=== PATIENT | female | born 1955 | race Caucasian/White ===

== ENCOUNTER 2019-11-27 07:48 | Outpatient (CLI) | payer OTHER, SELFPAY ==
--- NOTE | ~2019-11-27 | XR_ITS ---
EXAMINATION: XR chest 2V DATE: 11/27/2019 08:16 INDICATION: Shortness of breath. TECHNIQUE: Frontal and lateral views of the chest were obtained. COMPARISON: Chest 2 views 09/15/2019, chest CT 07/10/2019 FINDINGS: There is stable mild scarring at the lung apices. A calcified right lung nodule and calcifi ed mediastinal lymph nodes are consistent with old granulomatous disease. No pleural effusion or pneu mothorax. The heart size is normal. Surgical clips in the right upper quadrant are likely from cholec ystectomy. IMPRESSION: 1. Stable mild scarring at the lung apices. Reviewed, dictated and finalized at location A.
== END 2019-11-27 07:49 | disposition home or self-care (01) ==
PROVIDERS: PCP Family Medicine; Visit Provider Physician Assistant
DX: R06.02 Shortness of breath (principal); R91.8 Other nonspecific abnormal finding of lung field
CPT/HCPCS: 71046

== ENCOUNTER 2020-03-15 10:51 | Outpatient (CLI) | payer OTHER, SELFPAY ==
--- NOTE | ~2020-03-15 | XR_ITS ---
XR cervical spine 4-5V DATE: 03/15/2020 11:28 INDICATION: Neck pain, right arm pain. TECHNIQUE: AP, open-mouth, lateral, swimmer views COMPARISON: None FINDINGS: There is straightening of the cervical spine. There is approximately 1 mm anterolisthesis at C3-4. There is severe degenerative disc disease with anterior and posterior spurring at C5-6. There is moderately severe degenerative disease at C6-7. There is uncovertebral joint spurring at these 2 levels as well. Degenerative changes noted at the ap ophyseal joints. Incidental finding of bifid spinous process and/or spina bifida occulta at C5, C6 and C7. C1 and C2 are normally aligned and the odontoid process is intact. No fracture or dislocation or lock ed facet. No prevertebral soft tissue swelling. IMPRESSION: Straightening 1 mm anterolisthesis at C3-4 Prominent degenerative disc disease and uncovertebral joint spurring at C5-6 and C6-7 Reviewed, dictated and finalized at location B. IMPRESSION: Straightening 1 mm anterolisthesis at C3-4 Prominent degenerative disc disease and uncovertebral joint spurring at C5-6 an d C6-7
--- NOTE | ~2020-03-15 | XR_ITS ---
EXAMINATION: XR shoulder RT min 2V DATE: 03/15/2020 11:28 INDICATION: Neck pain. Right arm pain. TECHNIQUE: 4 views of right shoulder were obtained. COMPARISON: None. FINDINGS: Bone alignment is normal. No fracture. There is mild osteoarthrosis of glenohumeral joint a nd acromioclavicular joint. IMPRESSION: 1. Mild polyarticular osteoarthritis. Reviewed, dictated and finalized at location A.
== END 2020-03-15 10:52 ==
PROVIDERS: PCP Family Medicine; Visit Provider Family Medicine
DX: M50.322 Other cervical disc degeneration at C5-C6 level (principal); M50.323 Other cervical disc degeneration at C6-C7 level; M19.011 Primary osteoarthritis, right shoulder
CPT/HCPCS: 72050; 73030

== ENCOUNTER 2020-04-15 13:39 | Outpatient (CLI) | payer OTHER, SELFPAY ==
[2020-04-15 14:07] LABS: Basophils Absolute Auto 0.1 K/mm3 (0.0-0.1); Basophils Percent Auto 0.5 % (0.2-1.2); Eosinophils Absolute Auto 0.9 K/mm3 (0-0.3); Eosinophils Percent Auto 9.1 % (0-4.4); Hematocrit 43.5 % (37.0-47.0); Immature Granulocyte Absolute 0.04 K/mm3 (0.00-0.031); Immature Granulocyte Percent A 0.4 % (0-0.5); Lymphocytes Absolute Auto 2.55 K/mm3 (0.9-3.2); Lymphocytes Percent Auto 24.9 % (18.3-44.2); Mean Corpuscular HGB Conc 32.2 g/dl (32-36); Mean Corpuscular Hemoglobin 28.7 pg (26-34); Mean Corpuscular Volume 89.1 fl (80-100); Mean Platelet Volume 11.4 fl (7.4-10.4); Monocytes Absolute Auto 0.9 K/mm3 (0.1-0.6); Monocytes Percent Auto 9.1 % (2.6-8.5); Neutrophils Absolute Auto 5.7 K/mm3 (1.3-6.7); Platelet Count Result 273 k/mm3 (150-375); Red Blood Count 4.88 M/mm3 (4.2-5.4); Red Cell Distribution Width 15.4 % (11.5-14.5); White Blood Count 10.2 K/mm3 (4.5-10.0)
[2020-04-15 14:13] LABS: Add Urine Microscopic? YES; Appearance Urine Clear (Clear); Bacteria Urine Trace /hpf; Bilirubin Urine Negative (Negative); Blood Urine 2+ (Negative); Color Urine Colorless (Yellow); Glucose Urine UA Negative (Negative); Ketones Urine Negative (Negative); Leukocyte Esterase Ur Negative LEU/UL (NEGATIVE); Nitrate Urine Negative (Negative); Protein Urine Negative (Negative); Specific Grav Ur 1.005 (1.001-1.035); Squamous Epithelial Cell Urine Rare /hpf (Few); Urobilinogen Urine Negative mg/dL (<2.0); WBC Urine 0-3 /hpf (0-3)
[2020-04-15 14:18] LABS: Alanine Aminotransferase 39 U/L (4-35); Albumin Level 4.8 g/dL (3.5-5.1); Alkaline Phosphatase 81 U/L (38-126); Amylase 79 U/L (30-110); Anion Gap 8 mmol/L (8-16); Aspartate Amino Transferase 33 U/L (14-36); Bilirubin,Total 0.2 mg/dL (0.2-1.3); Blood Urea Nitrogen 9 mg/dL (7-17); Calcium 9.8 mg/dL (8.4-10.2); Carbon Dioxide 27 mmol/L (22-30); Chloride 106 mmol/L (98-107); Estimated Glomerular Filt Rate > 60; Glucose 73 mg/dL (65-105); Lipase 113 U/L (23-300); Potassium 3.3 mmol/L (3.4-5.0); Sodium 141 mmol/L (137-145)
== END 2020-04-15 13:40 | disposition home or self-care (01) ==
PROVIDERS: PCP Family Medicine; Visit Provider Physician Assistant
DX: R10.9 Unspecified abdominal pain (principal); R19.7 Diarrhea, unspecified
CPT/HCPCS: 36415; 80053; 81001; 82150; 83690; 84443; 85025; 86038; 86039

== ENCOUNTER 2020-05-16 16:15 | Emergency (ER) | payer OTHER, SELFPAY ==
[2020-05-16 16:28] VITALS: BP 143/88; PULSE 86; RESP 17; TEMP 36.7; O2SAT 98
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
[2020-05-16] MEDS: KETOROLAC (*BKC) 60 MG/2 ML VIAL 30 MG IM (16:47)
[2020-05-16 17:01] VITALS: BP 140/78; PULSE 78; RESP 15; O2SAT 99
== END 2020-05-16 17:02 | disposition home or self-care (01) ==
PROVIDERS: Emergency Provider Emergency Medicine; PCP Family Medicine
DX: M54.2 Cervicalgia (principal); J44.9 Chronic obstructive pulmonary disease, unspecified; I10 Essential (primary) hypertension; K21.9 Gastro-esophageal reflux disease without esophagitis; G47.33 Obstructive sleep apnea (adult) (pediatric); E78.49 Other hyperlipidemia; E11.9 Type 2 diabetes mellitus without complications; E55.9 Vitamin D deficiency, unspecified; Z87.891 Personal history of nicotine dependence; Z79.82 Long term (current) use of aspirin; F32.9 Major depressive disorder, single episode, unspecified
CPT/HCPCS: 96372; 99283; J1885

== ENCOUNTER 2020-06-10 07:30 | Outpatient (CLI) | payer OTHER, SELFPAY ==
--- NOTE | 2020-07-12 09:46 | WPDHOMESLEEP ---
Sleep Study - Home Unattended Date of Study: 06/10/20 Ordering Provider: Servando Mohamud APRN Interpreting Physician: Jillian Mcbride MD Home Sleep Study Type: Apnea Link Air Height: 1.57 m Weight: 54.885 kg Body Mass Index: 22.1 Neck Circumference (inches): 15.5 Ovando: 12 Reason for Sleep Study hypersomnia Sleep History Sandra Day is a 65-year-old female with a prior history of sleep apnea which has not been treated. A split night study on February 22, 2018 showed moderate sleep apnea with an AHI of 24.8 with mild to moderate continuous snoring and desaturations. She had a short sleep latency. All sleep stages were represented. Her optimal pressure was 12 cm with improvement in respiratory events. She used a ResMed med air fit after 20 fullface mask. She also required 2 L of oxygen. Her body mass index was normal at that time 24.7. She has a history of loud snoring loud enough that others complain about a, constantly waking at night with heartburn, belching or coughing. She occasionally awakens from sleep feeling short of breath. She occasionally has trouble sleep with a cold. She frequently wakes up gasping for breath at night, occasionally has breathing problems at night reported to her by others constantly sweats excessively at night and occasionally notices her heart pounding or beating irregularly at night. She frequently falls asleep during the day, occasionally involuntarily, never while driving. She does not have loss of muscle tone was strong emotion. She rarely has daytime difficulties due to excessive sleepiness. 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 She does not feel paralyzed on waking or falling asleep. She rarely has vivid dreamlike scenes upon awakening or falling asleep. She occasionally is afraid to go to sleep. She frequently has nightmares. she occasionally remembers her dreams. She frequently has racing thoughts. She rarely has feelings of sadness or depression. She occasionally has anxiety. She frequently has muscular tension. She occasionally notices parts of her body jerking and occasionally kicks at night. She frequently has crawling and aching feelings in her legs and frequently has leg pain during the night. She really has morning jaw pain. She does not grind her teeth during sleep. She frequently has bothered by pain during the day constantly is awakened by pain at night and occasional wakes up feeling stiff in the morning with sore achy muscles. She constantly wakes up with pain in the neck and spine. She has fatigue, nightmares, headaches and poor appetite. normal bedtime is 10 30 to 11:30 p.m. falling asleep within hour to an hour and a half, waking 4 times at night for 20 minutes or more. While awake she will go to the bathroom or just reposition herself. She wakes in the morning at 5:15 a.m.. Weekend schedule is the same. She does not take naps. A short nap is not refreshing. She is drowsy in the morning for 3 hours or longer. Habits: Tobacco 4th pack per day, drinks caffeine 2 cups of coffee a day. No alcohol or recreational drugs. [facility] Past Medical History Medical History COPD (chronic obstructive pulmonary disease) COPD exacerbation Depression Essential (primary) hypertension GERD (gastroesophageal reflux disease) Neck pain on right side SAUNDRA (obstructive sleep apnea) Other and unspecified hyperlipidemia Right shoulder pain Seasonal allergic rhinitis Sinus pressure Syncope and collapse Tobacco abuse Type 2 diabetes mellitus without complications Vitamin D deficiency Weakness of both legs Family History Family History Mother Asthma Family history of diabetes mellitus in first degree relative Family history of congestive heart failure Diabetes mellitus Acute myocardial infarction Father Family history of malignant neoplasm Family history of chron
[2020-07-12 09:59] VITALS: BMI 22.1
== END 2020-06-10 07:31 | disposition home or self-care (01) ==
LOC: ANHCSM 07:30
PROVIDERS: PCP Family Medicine; Visit Provider Nurse Practitioner Family
DX: G47.10 Hypersomnia, unspecified (principal)
CPT/HCPCS: 95806

== ENCOUNTER 2020-08-12 12:52 | Outpatient (CLI) | payer OTHER, SELFPAY ==
--- NOTE | ~2020-08-12 | MR_ITS ---
EXAMINATION: MR cervical spine wo con EXAM DATE: 08/12/2020 13:41 INDICATION: M54.2 Cervicalgia . TECHNIQUE: Multi-sequential, multiplanar MR images of the cervical spine were obtained without contra st. Axial T2, axial T2 MERGE sequence. Sagittal T1, T2, T2 fat saturation images also obtained. Cor relation is made to cervical spine x-ray 03/15/2020. FINDINGS: There is moderate disc disease C5-7. 2 mm anterolisthesis C3 on C4, 2 mm retrolisthesis C6 on C7. The vertebral bodies are otherwise aligned. The spinal cord signal intensity and intrinsic mo rphology is normal. Cervicomedullary junction is normal in appearance. There are no suspicious marrow signal abnormalities. Paraspinal soft tissue is unremarkable. Small thyroid nodules. Level by level evaluation: C2-C3: Disc does not extend beyond the endplate margin. Uncovertebral joint arthropathy: None. Facet joint arthropathy: Moderate bilateral. Neural foraminal stenosis: No stenosis. Central canal stenosis: No stenosis. C3-C4: There is a mild diffuse disc bulge. Uncovertebral joint arthropathy: Mild to moderate left, mild right. Facet joint arthropathy: Moderate to severe left, mild to moderate right. Neural foraminal stenosis: Moderate left, mild right. Central canal stenosis: No stenosis. C4-C5: There is a minimal diffuse disc bulge. Uncovertebral joint arthropathy: Mild bilateral. Facet joint arthropathy: Mild to moderate bilateral. Neural foraminal stenosis: No stenosis. Central canal stenosis: No stenosis. C5-C6: There is a mild diffuse disc bulge. Uncovertebral joint arthropathy: Moderate to severe right, moderate left. Facet joint arthropathy: Moderate bilateral. Neural foraminal stenosis: Moderate to severe right, mild to moderate left. Central canal stenosis: Mild. C6-C7: There is a mild diffuse disc bulge. Uncovertebral joint arthropathy: Moderate to severe left, moderate right. Facet joint arthropathy: Mild to moderate bilateral. Neural foraminal stenosis: Moderate left, mild to moderate right. Central canal stenosis: Mild. C7-T1: Disc does not extend beyond the endplate margin. Uncovertebral joint arthropathy: None. Facet joint arthropathy: Mild. Neural foraminal stenosis: No stenosis. Central canal stenosis: No stenosis. IMPRESSION: 1. Moderate to severe lower cervical spondylosis. Reviewed, dictated and finalized at location A. HERDER
== END 2020-08-12 12:53 | disposition home or self-care (01) ==
LOC: ANHIMG 12:57
PROVIDERS: PCP Family Medicine; Visit Provider Physician Assistant
DX: M47.892 Other spondylosis, cervical region (principal)
CPT/HCPCS: 72141

== ENCOUNTER 2020-08-25 10:02 | Outpatient (CLI) | payer OTHER, SELFPAY ==
--- NOTE | ~2020-08-25 | CT_ITS ---
EXAMINATION: CT chest wo con DATE: 08/25/2020 10:19 INDICATION: COPD, shortness of breath TECHNIQUE: Computed tomography (CT) of the chest was performed without intravenous contrast. The dose -length product (DLP) was 127.02 mGy-cm. Automated exposure control and iterative reconstruction tech Novitaz were employed. COMPARISON: 07/10/2019 FINDINGS: There is moderate emphysema. Scarring is noted in the right lung apex. The lungs are free o f acute opacities. There is no pleural effusion or pneumothorax. No pathologically enlarged thoracic lymph nodes are identified. The heart size is normal. Calcified coronary artery atherosclerosis is no waylon. Calcified mediastinal lymph nodes are consistent with old granulomatous disease. The gallbladder is surgically absent. There is a 2.7 cm cyst of the right kidney upper pole. Surgical changes are no waylon in the right humeral head. A stable mass of the right adrenal gland is consistent with an adenoma . There is mild thoracic spondylosis. IMPRESSION: 1. Moderate emphysema. Reviewed, dictated and finalized at location A. 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 Moderate emphysema.
== END 2020-08-25 10:03 | disposition home or self-care (01) ==
PROVIDERS: PCP Family Medicine; Visit Provider Internal Medicine Critical Care Medicine
DX: J43.9 Emphysema, unspecified (principal)
CPT/HCPCS: 71250

== ENCOUNTER → 2020-11-01 00:39 | Outpatient (CLI) | payer OTHER, SELFPAY ==
[2020-11-01 18:03] LABS: SARS-CoV-2 RNA PCR Negative
== END ==
PROVIDERS: PCP Family Medicine; Visit Provider Internal Medicine Critical Care Medicine
DX: Z01.812 Encounter for preprocedural laboratory examination (principal); Z20.822 Contact with and (suspected) exposure to COVID-19
CPT/HCPCS: C9803; U0003; U0005

== ENCOUNTER 2020-11-03 09:03 | Outpatient (CLI) | payer OTHER, SELFPAY ==
--- NOTE | 2020-11-24 10:50 | WPDSLEEPSTUD ---
Sleep Study Ordering Provider: Servando Mohamud APRN Interpreting Physician: Jillian Mcbride MD Sleep Study Type: CPAP Titration Height: 1.57 m Weight: 54.431 kg Body Mass Index: 21.9 Neck Circumference (inches): 14 Alcova: 16 Reason for Sleep Study Home Sleep Test June 10, 2020 with moderate obstructive sleep apnea, AHI 28.4, severe hypoxemia to 40%, 62% of the time spent below 88%; she is not here for CPAP titraiton. Sleep History Sandra Day is a 65-year-old female with a prior history of sleep apnea which has not been treated. A split night study on February 22, 2018 showed moderate sleep apnea with an AHI of 24.8 with mild to moderate continuous snoring and desaturations. She had a short sleep latency. All sleep stages were represented. Her optimal pressure was 12 cm with improvement in respiratory events. She used a ResMed med Airfit F 20 fullface mask. She also required 2 L of oxygen. Her body mass index was normal at that time 24.7. SHe had a home sleep test Jun 10, 2020 with an AHI 28.4, Severe hypoxemia to a minimal saturation of 40% and 62% of the night spent below 88% saturation. She is here for CPAP titration. She has a history of loud snoring loud enough that others complain about a, constantly waking at night with heartburn, belching or coughing. She occasionally awakens from sleep feeling short of breath. She occasionally has trouble sleep with a cold. She frequently wakes up gasping for breath at night, occasionally has breathing problems at night reported to her by others constantly sweats excessively at night and occasionally notices her heart pounding or beating irregularly at night. She frequently falls asleep during the day, occasionally involuntarily, never while driving. She does not have loss of muscle tone was strong emotion. She rarely has daytime difficulties due to excessive sleepiness. 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 She does not feel paralyzed on waking or falling asleep. She rarely has vivid dreamlike scenes upon awakening or falling asleep. She occasionally is afraid to go to sleep. She frequently has nightmares. she occasionally remembers her dreams. She frequently has racing thoughts. She rarely has feelings of sadness or depression. She occasionally has anxiety. She frequently has muscular tension. She occasionally notices parts of her body jerking and occasionally kicks at night. She frequently has crawling and aching feelings in her legs and frequently has leg pain during the night. She really has morning jaw pain. She does not grind her teeth during sleep. She frequently has bothered by pain during the day constantly is awakened by pain at night and occasional wakes up feeling stiff in the morning with sore achy muscles. She constantly wakes up with pain in the neck and spine. She has fatigue, nightmares, headaches and poor appetite. Normal bedtime is 10 30 to 11:30 p.m., falling asleep within hour to an hour and a half, waking 4 times at night for 20 minutes or more. While awake, she urinates, repositions herself and tries to return to sleep. She wakes in the morning at 5:15 a.m.. Weekend schedule is the same. She does not take naps. A short nap is not refreshing. She is drowsy in the morning for 3 hours or longer. Habits: Tobacco 1/4 pack per day, drinks caffeine 2 cups of coffee a day. No alcohol or recreational drugs. [facility] Past Medical History Medical History COPD (chronic obstructive pulmonary disease) COPD exacerbation Depression Essential (primary) hypertension GERD (gastroesophageal reflux disease) Neck pain on right side SAUNDRA (obstructive sleep apnea) Other and unspecified hyperlipidemia Right shoulder pain Seasonal allergic rhinitis Sinus pressure Syncope and collapse Tobacco abuse Type 2 diabetes mellitus without complications Vitamin D deficiency Weakness of both legs Family History Family History (Reviewed
[2020-11-24 11:23] VITALS: BMI 21.9
== END 2020-11-03 09:04 | disposition home or self-care (01) ==
LOC: ANHCSM 09:03
PROVIDERS: PCP Family Medicine; Visit Provider Nurse Practitioner Family
DX: G47.33 Obstructive sleep apnea (adult) (pediatric) (principal)
CPT/HCPCS: 95811

== ENCOUNTER 2020-11-25 11:48 | Outpatient (CLI) | payer OTHER, SELFPAY ==
--- NOTE | ~2020-11-25 | XR_ITS ---
EXAMINATION: XR hand LT 2V, XR hand RT 2V, XR wrist LT 2V, XR wrist RT 2V DATE: 11/25/2020 12:32 INDICATION: Multiple joint pain TECHNIQUE: 1. Posteroanterior and lateral views of the left hand were obtained. 2. Posteroanterior and lateral views of the left wrist were obtained. 3. Posteroanterior and lateral views of the right hand were obtained. 4. Posteroanterior and lateral views of the right wrist were obtained. COMPARISON: None. FINDINGS: Left hand and wrist: Bone alignment is normal. No fracture. Joint spaces are normal. No erosions to suggest inflammatory a rthritis. Mild periarticular soft tissue swelling at the left third and fourth proximal interphalange al joints.. Right hand and wrist: Bone alignment is normal. No fracture. Joint spaces are normal. No erosions to suggest inflammatory a rthritis. Similar pattern of mild periarticular soft tissue swelling at the third and fourth proximal interphalangeal joints. IMPRESSION: 1. Periarticular soft tissue swelling at the bilateral third and fourth proximal interphalangeal join ts. No osseous abnormality. Reviewed, dictated and finalized at location A. IMPRESSION: 1. Periarticular soft tissue swelling at the bilateral third and fourth proxima l interphalangeal joints. No osseous abnormality. IMPRESSION: 1. Periarticular soft tissue swelling at the bilateral third and fourth proxima l interphalangeal joints. No osseous abnormality. IMPRESSION: 1. Periarticular soft tissue swelling at the bilateral third and fourth proxima l interphalangeal joints. No osseous abnormality.
--- NOTE | ~2020-11-25 | XR_ITS ---
XR knee RT 2V 11/25/2020 12:32 Indication: Joint pain Procedure: 2 view right knee Comparison: No prior studies for comparison. Findings: No fracture, subluxation or dislocation. No significant joint effusion. No foreign bodies. Anatomic alignment. Impression: 1: No significant bone or joint abnormality. Reviewed, dictated and finalized at location B. Impression: 1: No significant bone or joint abnormality.
--- NOTE | ~2020-11-25 | XR_ITS ---
XR hip LT min 2V 11/25/2020 12:32 Indication: Multiple joint pain Procedure: 2 views left hip Comparison: 05/09/2016 Findings: Mild osteoarthritis of the left hip. No fracture, subluxation or dislocation. There is lowe r lumbar spondylosis. No significant soft tissue abnormality. Impression: 1: Mild osteoarthritis of the left knee. Reviewed, dictated and finalized at location B. Impression: 1: Mild osteoarthritis of the left knee.
--- NOTE | ~2020-11-25 | XR_ITS ---
XR knee LT 2V 11/25/2020 12:32 Indication: Left knee pain Procedure: Multiple joint pain Comparison: 2 views of the left knee Findings: No fracture, subluxation or dislocation. No significant joint effusion. No significant join t space narrowing. Anatomic alignment. No foreign bodies. Impression: 1: No significant bone or joint abnormality. Reviewed, dictated and finalized at location B. Impression: 1: No significant bone or joint abnormality.
--- NOTE | ~2020-11-25 | XR_ITS ---
EXAMINATION: XR hip RT min 2V EXAM DATE: 11/25/2020 12:32 INDICATION: Multijoint pain. TECHNIQUE: Right hip frontal, 'frog leg' projections for interpretation. Correlation is made to pelvi c x-ray 09/08/2013. FINDINGS: Smooth right hip femoral head contour, no radiographic evidence of avascular necrosis. The re is mild right hip primary osteoarthritis. There are no acute fractures or dislocations identified. There is no subcutaneous gas. The soft tissue is unremarkable. There are no radiopaque foreign b odies. IMPRESSION: Mild right hip osteoarthritis. Reviewed, dictated and finalized at location A.
--- NOTE | ~2020-11-25 | XR_ITS ---
EXAMINATION: XR foot LT 2V, XR foot RT 2V DATE: 11/25/2020 12:32 INDICATION: Multiple joint pain. TECHNIQUE: 1. Dorsoplantar and lateral views of the left foot were obtained. 2. Dorsoplantar and lateral views of the right foot were obtained. COMPARISON: None. FINDINGS: Chronic realignment osteotomies at the necks of the bilateral fifth metatarsals which are healed in n ear-anatomic alignment. No fracture. Minimal to mild nonuniform joint space narrowing consistent with mild osteoarthritis at several of the bilateral tarsal metatarsal joints. No erosions to suggest an inflammatory arthritis. Soft tissues are unremarkable. IMPRESSION: 1. Minimal to mild osteoarthritis at a few of the bilateral tarsal metatarsal joints. 2. Chronic healed realignment osteotomies at the necks of the left and right fifth metatarsals. Reviewed, dictated and finalized at location A. IMPRESSION: 1. Minimal to mild osteoarthritis at a few of the bilateral tarsal metatarsal j oints. 2. Chronic healed realignment osteotomies at the necks of the left and right fi fth metatarsals.
[2020-11-25 13:20] LABS: Hematocrit 42.6 % (37.0-47.0); Hemoglobin 13.6 g/dL (12.0-15.0); Mean Corpuscular HGB Conc 31.9 g/dl (32-36); Mean Corpuscular Hemoglobin 29.2 pg (26-34); Mean Corpuscular Volume 91.4 fl (80-100); Mean Platelet Volume 11.2 fl (7.4-10.4); Platelet Count Result 282 k/mm3 (150-375); Red Blood Count 4.66 M/mm3 (4.2-5.4); Red Cell Distribution Width 14.6 % (11.5-14.5); White Blood Count 9.5 K/mm3 (4.5-10.0)
[2020-11-25 13:41] LABS: Alanine Aminotransferase 30 U/L (4-35); Albumin Level 4.8 g/dL (3.5-5.1); Alkaline Phosphatase 67 U/L (38-126); Anion Gap 9 mmol/L (8-16); Aspartate Amino Transferase 28 U/L (14-36); Bilirubin,Total < 0.1 mg/dL (0.2-1.3); Blood Urea Nitrogen 8 mg/dL (7-17); CRP < 0.5 mg/dL (<1.0); Calcium 9.9 mg/dL (8.4-10.2); Carbon Dioxide 29 mmol/L (22-30); Chloride 105 mmol/L (98-107); Creatine Kinase 177 U/L (30-135); Estimated Glomerular Filt Rate > 60; Glucose 74 mg/dL (65-105); Magnesium 1.5 mg/dL (1.6-2.3); Potassium 4.1 mmol/L (3.4-5.0); Rheumatoid Factor < 8.6 IU/ML (<12); Sodium 143 mmol/L (137-145); Uric Acid 4.8 mg/dL (2.5-7.5)
[2020-11-25 14:00] LABS: Erythrocyte Sedimentation Rate 14 mm/hr (0-20)
[2020-11-25 14:05] LABS: Free T4 Free Thyroxine 0.81 ng/mL (0.78-2.19); Vitamin D 25 Hydroxy 18.7 ng/mL
[2020-11-25 14:45] LABS: Folic Acid 4.7 ng/mL (2.76->20)
[2020-11-25 15:38] LABS: Add Urine Microscopic? YES; Appearance Urine Clear (Clear); Bilirubin Urine Negative (Negative); Blood Urine 1+ (Negative); Color Urine Yellow (Yellow); Glucose Urine UA Negative (Negative); Ketones Urine Negative (Negative); Leukocyte Esterase Ur Negative LEU/UL (NEGATIVE); Mucus Urine Rare /lpf; Nitrate Urine Negative (Negative); Protein Urine Negative (Negative); RBC Urine 0-2 /hpf (0-2); Specific Grav Ur 1.015 (1.001-1.035); Squamous Epithelial Cell Urine Rare /hpf (Few); Urobilinogen Urine Negative mg/dL (<2.0); WBC Urine 0-3 /hpf (0-3)
[2020-11-25 19:36] LABS: Complement C3 120 mg/dL (88-165)
[2020-11-28 10:44] LABS: Vitamin B1 13 nmol/L (8-30)
[2020-11-28 20:41] LABS: Albumin 4.3 g/dL (3.8-4.8); Alpha 1 Globulin 0.3 g/dL (0.2-0.3); Alpha 2 Globulin 1.1 g/dL (0.5-0.9); Beta 1 Globulin 0.6 g/dL (0.4-0.6); Gamma Globulin 0.7 g/dL (0.8-1.7); Protein, Total 7.2 g/dL (6.1-8.1)
[2020-11-29 03:54] LABS: Anti Cardio Antibody IgM 29 MPL (<=12); Anti Cardiolipin Antibody IgA <11 APL (<=11); Anti Cardiolipin Antibody IgG <14 GPL (<=14)
[2020-11-29 08:38] LABS: RNP Antibodies <1.0; SS-A <1.0; SS-B <1.0; Scleroderma 70 Antibody <1.0
[2020-12-01 09:18] LABS: Anti Cyclic Citrullinated Pept <16 Units (<20)
[2020-12-01 14:11] LABS: Complement Total CH50 >60 U/mL (31-60)
[2020-12-02 05:28] LABS: Creatinine, Random Urine 96 mg/dL (20-275); Total Protein/Creatinine Ratio 83 mg/g creat (21-161)
== END 2020-11-25 11:49 | disposition home or self-care (01) ==
PROVIDERS: PCP Family Medicine; Visit Provider Internal Medicine Rheumatology
DX: M19.90 Unspecified osteoarthritis, unspecified site (principal); M19.071 Primary osteoarthritis, right ankle and foot; M19.072 Primary osteoarthritis, left ankle and foot; M16.0 Bilateral primary osteoarthritis of hip
CPT/HCPCS: 36415; 73100; 73120; 73502; 73560; 73620; 80053; 81001; 82306; 82550; 82570; 82607; 82728; 82746; 83036; 83520; 83735; 84155; 84156; 84165; 84166; 84207; 84425; 84439; 84443; 84550; 85027; 85652; 86140; 86147; 86160; 86162; 86200; 86225; 86235; 86334; 86335; 86430

== ENCOUNTER 2020-12-09 10:56 | Outpatient (CLI) | payer OTHER, SELFPAY | END 2020-12-09 10:57 | disposition home or self-care (01) | LOC: ANHCOVIDVC 10:56 | PROVIDERS: PCP Family Medicine | DX: Z23 Encounter for immunization (principal) | CPT/HCPCS: 0001A; 91300 ==

== ENCOUNTER 2020-12-30 11:02 | Outpatient (CLI) | payer OTHER, SELFPAY | END 2020-12-30 11:03 | disposition home or self-care (01) | LOC: ANHCOVIDVC 11:02 | PROVIDERS: PCP Family Medicine | DX: Z23 Encounter for immunization (principal) | CPT/HCPCS: 0002A; 91300 ==

== ENCOUNTER 2021-02-14 10:04 | Outpatient (CLI) | payer OTHER, SELFPAY ==
--- NOTE | ~2021-02-14 | MR_ITS ---
EXAMINATION: MR cervical spine wo con DATE: 02/14/2021 10:42 INDICATION: Neck pain. TECHNIQUE: Magnetic resonance imaging (MRI) of the cervical spine was performed without intravenous c ontrast. Sequences included sagittal T2-weighted FSE, sagittal STIR FSE, sagittal T1-weighted FSE, ax ial MERGE, and axial T2-weighted FSE. COMPARISON: Cervical spine MRI 08/12/2020 FINDINGS: There is 2 mm retrolisthesis of C5 on C6. Vertebral body heights are normal. There is sever naomie decreased disc height at C5-C6 and C6-C7. The spinal cord signal intensity is normal. There are n odules in the thyroid measuring up to 12 mm, likely not clinically significant. The following disc le vels are specifically discussed: C2-C3: The disc does not extend beyond the endplate margin. There is no uncovertebral joint osteoarth ritis. There is severe bilateral facet joint osteoarthritis. There is mild right neural foraminal heidy nosis. There is no central canal stenosis. C3-C4: The disc does not extend beyond the endplate margin. There is mild left uncovertebral joint os teoarthritis. There is moderate right and severe left facet joint osteoarthritis. There is moderate l eft neural foraminal stenosis. There is no central canal stenosis. C4-C5: The disc does not extend beyond the endplate margin. There is no uncovertebral joint osteoarth ritis. There is mild left facet joint osteoarthritis. There is no neural foraminal stenosis. There is no central canal stenosis. C5-C6: The disc is bulging. There is severe bilateral uncovertebral joint osteoarthritis. There is mo derate right and severe left facet joint osteoarthritis. There is moderate right and mild left neural foraminal stenosis. There is mild central canal stenosis. C6-C7: The disc is bulging. There is severe bilateral uncovertebral joint osteoarthritis. There is mo derate bilateral facet joint osteoarthritis. There is mild bilateral neural foraminal stenosis. There is mild central canal stenosis. C7-T1: The disc does not extend beyond the endplate margin. There is no uncovertebral joint osteoarth ritis. There is mild bilateral facet joint osteoarthritis. There is mild left neural foraminal stenos is. There is no central canal stenosis. IMPRESSION: 1. Severe cervical spondylosis, stable from 08/12/2020. Reviewed, dictated and finalized at location A.
== END 2021-02-14 10:05 ==
PROVIDERS: PCP Family Medicine; Visit Provider Internal Medicine Rheumatology
DX: M47.892 Other spondylosis, cervical region (principal)
CPT/HCPCS: 72141

== ENCOUNTER 2021-07-24 13:33 | Emergency (ER) | payer MEDICARE, OTHER, SELFPAY ==
--- NOTE | ~2021-07-24 | XR_ITS ---
XR chest 1V portable 07/24/2021 14:29 Indication: Shortness of breath Procedure: AP portable chest Comparison: Comparison to multiple prior studies sequentially, with oldest reviewed study dated 11/17. Findings: There are bilateral interstitial infiltrates of the mid and lower lung zones. Heart size no rmal. No pleural effusion or pneumothorax. Mild peribronchial thickening. Impression: 1: Bilateral interstitial infiltrates with peribronchial thickening. Considerations include mild ana a and atypical pneumonia. Reviewed, dictated and finalized at location A. NG LINE WORKER Impression: 1: Bilateral interstitial infiltrates with peribronchial thickening. Considerat ions include mild edema and atypical pneumonia.
[2021-07-24 13:36] VITALS: BP 108/44; PULSE 86; RESP 22; TEMP 37; O2SAT 96
--- NOTE | 2021-07-24 13:54 | ECG_ITS ---
Measurements Intervals [place] Rate: 84 P: 81 [place]: 161 QRS: 44 QRSD: 90 T: 66 QT: 351 QTc: 417 Interpretive Statements SINUS RHYTHM INCOMPLETE RIGHT BUNDLE BRANCH BLOCK LOW QRS VOLTAGE IN PRECORDIAL LEADS BASELINE ARTIFACT- I, III, AVR, AVL BORDERLINE ECG Electronically Signed On 07-25-2021 13:50:12 DIVISIONAL MERCHANDISING MANAGER by Chalino Mcgovern D.O.
[2021-07-24] MEDS: ALBUTEROL SULFATE NEB 2.5 MG/0.5 ML INH 15 MG INHALATION (14:07)
[2021-07-24] MEDS: IPRATROPIUM BR 0.02% INH SOLN 0.5 MG/2.5 ML VIAL 1 MG INHALATION (14:07)
[2021-07-24 14:10] VITALS: PULSE 85; RESP 16
[2021-07-24 14:29] LABS: Basophils Absolute Auto 0.1 K/mm3 (0.0-0.1); Basophils Percent Auto 0.7 % (0.2-1.2); Eosinophils Absolute Auto 0.7 K/mm3 (0-0.3); Eosinophils Percent Auto 8.2 % (0-4.4); Hematocrit 43.9 % (37.0-47.0); Hemoglobin 14.6 g/dL (12.0-15.0); Immature Granulocyte Absolute 0.01 K/mm3 (0.00-0.031); Immature Granulocyte Percent A 0.1 % (0-0.5); Lymphocytes Absolute Auto 1.92 K/mm3 (0.9-3.2); Lymphocytes Percent Auto 21.2 % (18.3-44.2); Mean Corpuscular HGB Conc 33.3 g/dl (32-36); Mean Corpuscular Hemoglobin 29.7 pg (26-34); Mean Corpuscular Volume 89.2 fl (80-100); Mean Platelet Volume 11.7 fl (7.4-10.4); Monocytes Absolute Auto 0.6 K/mm3 (0.1-0.6); Monocytes Percent Auto 7.1 % (2.6-8.5); Neutrophils Absolute Auto 5.7 K/mm3 (1.3-6.7); Neutrophils Percent Auto 62.7 % (45.5-73.1); Platelet Count Result 286 k/mm3 (150-375); Red Blood Count 4.92 M/mm3 (4.2-5.4); Red Cell Distribution Width 13.8 % (11.5-14.5)
[2021-07-24 14:40] LABS: Alanine Aminotransferase 38 U/L (4-35); Alkaline Phosphatase 83 U/L (38-126); Anion Gap 8 mmol/L (8-16); Aspartate Amino Transferase 38 U/L (14-36); Bilirubin,Total 0.3 mg/dL (0.2-1.3); Blood Urea Nitrogen 14 mg/dL (7-17); Calcium 10.4 mg/dL (8.4-10.2); Carbon Dioxide 25 mmol/L (22-30); Chloride 102 mmol/L (98-107); Estimated CRCL calculation 47 ml/min; Estimated Glomerular Filt Rate > 60; Glucose 93 mg/dL (65-110); Potassium 4.6 mmol/L (3.4-5.0); Sodium 135 mmol/L (137-145)
--- NOTE | 2021-07-24 15:09 | PC.NURSE ---
called lab and spoke to Maximiliano to add on BNP
[2021-07-24 15:15] VITALS: PULSE 85; RESP 20
[2021-07-24] MEDS: methylPREDNISolone SOD SUCC 125 MG VIAL IV PUSH (15:18)
--- NOTE | 2021-07-24 15:23 | ED.SOB ---
HPI - SOB/Dyspnea General Chief Complaint: Shortness of Breath/Dyspnea Stated Complaint: sob Time Seen by Provider: 07/24/21 13:44 History of Present Illness HPI Narrative: Patient is a 66-year-old female with history of COPD who presents ER with shortness of breath. Reports over the last week she has been having runny nose with sore throat and productive cough. Subjective fevers and chills. No known sick contacts. She has been vaccinated for Covid and has had a booster. Reports some chest discomfort related to coughing but no chest pain with exertion or rest. She does have exertional dyspnea. She has been using breathing treatments without improvement. Related Data Home Medications Medication Instructions Recorded Confirmed aspirin [Aspir-81] 81 mg PO DAILY 08/09/19 07/11/21 pantoprazole 20 mg tablet,delayed 20 mg PO QAM 09/04/19 07/11/21 release cholecalciferol (vitamin D3) 25 25 mcg PO DAILY 03/07/21 07/11/21 mcg (1,000 unit) capsule ferrous sulfate 325 mg (65 mg 325 mg PO DAILY 03/07/21 07/11/21 iron) tablet Allergies Allergy/AdvReac Type Severity Reaction Status Date / Time Penicillins Allergy Unknown Rash Verified 07/11/21 09:58 sitagliptin Allergy Unknown Rash Verified 07/11/21 09:58 Review of Systems Review of Systems: All systems reviewed & are unremarkable except as noted in HPI and below Constitutional: Constitutional: Reports chills, Reports fatigue, Reports fever(s) and Reports weakness ENT: Reports nasal congestion and Denies sore throat Cardiovascular: Cardiovascular: Denies chest pain, Denies rapid heart rate and Denies radiating jaw, neck or arm pain Respiratory: Respiratory: Reports cough, Reports dyspnea and Reports wheezing Gastrointestinal: Gastrointestinal: Denies abdominal pain, Denies nausea and Denies vomiting Musculoskeletal: Musculoskeletal: Denies back pain and Denies muscle cramps PMF Past Medical History Medical History (Updated 07/24/21 @ 16:16 by Demetri Morse MD) COPD (chronic obstructive pulmonary disease) COPD exacerbation Depression Essential (primary) hypertension GERD (gastroesophageal reflux disease) Neck pain on right side SAUNDRA (obstructive sleep apnea) Other and unspecified hyperlipidemia Right shoulder pain Seasonal allergic rhinitis Sinus pressure Syncope and collapse Tobacco abuse Type 2 diabetes mellitus without complications Vitamin D deficiency Weakness of both legs Family History Family History Mother Asthma Family history of diabetes mellitus in first degree relative Family history of congestive heart failure Diabetes mellitus Acute myocardial infarction Father Family history of malignant neoplasm Family history of chronic obstructive pulmonary disease Family history of diabetes mellitus in first degree relative Diabetes mellitus Acute myocardial infarction Family history of emphysema Sibling Patient's sister is in good health Patient's brother is Family history of alcoholism Social History Social History Smoking packs per day: 1 Smoking cigarettes per day: 20.0 Years smoked: 53 Smoking pack-years: 53.00 Smoking status: Current every day smoker Second hand tobacco smoke exposure: Yes Smoking end date: 08/27/16 Additional smoking assessment comments: started smoking at age 11 Alcohol intake: never Substance use: never Substance use type: does not use Gender identity (if verbalized by the patient): Female Exam Narrative: GENERAL: Well-appearing, well-nourished, and in no acute distress. HEAD: Normocephalic, atraumatic. CHEST: Scattered rhonchi/wheezing.. No respiratory distress. HEART: Regular rate and rhythm. Normal peripheral pulses. ABDOMEN: Soft, nontender, nondistended. EXTREMITIES: Normal range of motion. No edema. SKIN: Warm, dry, no rash.
[2021-07-24 15:30] LABS: NT Pro B Type Natriuretic Pept 283 pg/mL (5-100)
== END 2021-07-24 16:36 | disposition home or self-care (01) ==
PROVIDERS: Emergency Provider Emergency Medicine; PCP Family Medicine
DX: J18.9 Pneumonia, unspecified organism (principal); J44.9 Chronic obstructive pulmonary disease, unspecified; I10 Essential (primary) hypertension; K21.9 Gastro-esophageal reflux disease without esophagitis; G47.33 Obstructive sleep apnea (adult) (pediatric); E11.9 Type 2 diabetes mellitus without complications; E55.9 Vitamin D deficiency, unspecified; Z79.84 Long term (current) use of oral hypoglycemic drugs; Z79.82 Long term (current) use of aspirin; F32.A Depression, unspecified; Z87.891 Personal history of nicotine dependence; I45.10 Unspecified right bundle-branch block
CPT/HCPCS: 36415; 71045; 80053; 83880; 84484; 85025; 93005; 94640; 96374; 99284; J2930

== ENCOUNTER 2021-08-01 11:57 | Outpatient (CLI) | payer MEDICARE, OTHER, SELFPAY ==
[2021-08-01 12:27] LABS: Alanine Aminotransferase 43 U/L (4-35); Alkaline Phosphatase 71 U/L (38-126); Anion Gap 13 mmol/L (8-16); Aspartate Amino Transferase 25 U/L (14-36); Bilirubin,Total 0.3 mg/dL (0.2-1.3); Blood Urea Nitrogen 15 mg/dL (7-17); Calcium 10.1 mg/dL (8.4-10.2); Carbon Dioxide 20 mmol/L (22-30); Chloride 99 mmol/L (98-107); Estimated Glomerular Filt Rate > 60; Glucose 135 mg/dL (65-110); Sodium 132 mmol/L (137-145)
[2021-08-01 12:50] LABS: Basophils Absolute Auto 0.1 K/mm3 (0.0-0.1); Basophils Percent Auto 0.5 % (0.2-1.2); Eosinophils Absolute Auto 1.1 K/mm3 (0-0.3); Eosinophils Percent Auto 10.9 % (0-4.4); Hemoglobin 14.9 g/dL (12.0-15.0); Immature Granulocyte Absolute 0.04 K/mm3 (0.00-0.031); Immature Granulocyte Percent A 0.4 % (0-0.5); Lymphocytes Absolute Auto 2.28 K/mm3 (0.9-3.2); Lymphocytes Percent Auto 23.1 % (18.3-44.2); Mean Corpuscular HGB Conc 33.1 g/dl (32-36); Mean Corpuscular Hemoglobin 30.5 pg (26-34); Mean Platelet Volume 11.6 fl (7.4-10.4); Monocytes Absolute Auto 0.9 K/mm3 (0.1-0.6); Monocytes Percent Auto 8.8 % (2.6-8.5); Neutrophils Absolute Auto 5.6 K/mm3 (1.3-6.7); Neutrophils Percent Auto 56.3 % (45.5-73.1); Platelet Count Result 267 k/mm3 (150-375); Red Blood Count 4.89 M/mm3 (4.2-5.4); Red Cell Distribution Width 14.3 % (11.5-14.5); White Blood Count 9.9 K/mm3 (4.5-10.0)
== END 2021-08-01 11:58 | disposition home or self-care (01) ==
PROVIDERS: PCP Family Medicine; Visit Provider Family Medicine
DX: J30.2 Other seasonal allergic rhinitis (principal); R53.83 Other fatigue
CPT/HCPCS: 36415; 80053; 85025

== ENCOUNTER → 2021-08-01 12:28 | Outpatient (CLI) | payer MEDICARE, OTHER, SELFPAY ==
--- NOTE | ~2021-08-01 | XR_ITS ---
EXAMINATION: XR chest 2V DATE: 08/01/2021 12:41 INDICATION: Cough TECHNIQUE: PA and lateral views of the chest are obtained. COMPARISON: 07/24/2021 FINDINGS: The lungs are free of acute opacities. There is no pleural effusion or pneumothorax. The ca rdiomediastinal silhouette is normal. There is mild thoracic spondylosis. IMPRESSION: 1. No acute cardiopulmonary abnormality. Reviewed, dictated and finalized at location A. NER INTERN
== END ==
PROVIDERS: PCP Family Medicine; Visit Provider Family Medicine
DX: R05.9 Cough, unspecified (principal)
CPT/HCPCS: 71046

== ENCOUNTER → 2021-08-23 10:16 | Outpatient (CLI) | payer MEDICARE, OTHER, SELFPAY ==
[2021-08-23 18:06] LABS: Influenza Control Positive
[2021-08-24 03:59] LABS: SARS-CoV-2 RNA PCR Negative
== END ==
PROVIDERS: PCP Family Medicine; Visit Provider Physician Assistant
DX: R05.9 Cough, unspecified (principal); R68.83 Chills (without fever); Z20.822 Contact with and (suspected) exposure to COVID-19
CPT/HCPCS: 87804; C9803; U0003; U0005

== ENCOUNTER → 2021-08-24 11:47 | Outpatient (CLI) | payer MEDICARE, OTHER, SELFPAY ==
--- NOTE | ~2021-08-24 | XR_ITS ---
EXAMINATION: XR chest 2V DATE: 08/24/2021 12:24 INDICATION: Chronic obstructive pulmonary disease with acute exacerbation. Cough. Shortness of breath . TECHNIQUE: Frontal and lateral views of the chest were obtained. COMPARISON: Chest 2 views 08/01/2021 FINDINGS: A calcified right lung nodule and calcified mediastinal lymph nodes are consistent with old granulomatous disease. No pleural effusion or pneumothorax. The heart size is normal. IMPRESSION: 1. No acute cardiopulmonary disease. Reviewed, dictated and finalized at location D. [employer]
== END ==
PROVIDERS: PCP Family Medicine; Visit Provider Physician Assistant
DX: J44.1 Chronic obstructive pulmonary disease with (acute) exacerbation (principal); R05.9 Cough, unspecified
CPT/HCPCS: 71046

== ENCOUNTER 2021-08-25 10:05 | Outpatient (CLI) | payer MEDICARE, OTHER, SELFPAY ==
--- NOTE | ~2021-08-25 | MM_ITS ---
EXAMINATION: MM screening [facility] BI w oliver HISTORY: Screening TECHNIQUE: Craniocaudal and mediolateral oblique 3-D tomosynthesis images were obtained and synthetic 2-D images were generated. CAD analysis was submitted and interpreted. COMPARISON: Comparison to multiple prior studies sequentially, with oldest reviewed study dated 02/04. BREAST PARENCHYMAL COMPOSITION: There are scattered areas of fibroglandular density. FINDINGS: There is no evidence of suspicious mass, calcification, or architectural distortion to sugg est malignancy in either breast. There has been no suspicious interval change. IMPRESSION: 1. No mammographic evidence of malignancy. 2. Recommend routine screening mammography in one year. BI-RADS Category 1: Negative. Reviewed, dictated and finalized at location A. [employer]
== END 2021-08-25 10:06 | disposition home or self-care (01) ==
LOC: ANHIMG 10:07
PROVIDERS: PCP Family Medicine; Visit Provider Family Medicine
DX: Z12.31 Encounter for screening mammogram for malignant neoplasm of breast (principal)
CPT/HCPCS: 77063; 77067

== ENCOUNTER → 2021-09-06 09:41 | Outpatient (CLI) | payer MEDICARE, OTHER, SELFPAY ==
--- NOTE | ~2021-09-06 | CT_ITS ---
EXAMINATION: CT lung screening EXAM DATE: 09/06/2021 09:56 INDICATION: Z87.891 - Personal history of nicotine dependence. TECHNIQUE: Spiral low dose CT of the chest without contrast. Axial, coronal and sagittal images were reviewed. The dose-length product (DLP) for this examination was 62.75 mGy-cm. The exposure was ta ilored according to patient size (auto mA exposure control), and iterative reconstruction (ASIR) was used as additional dose reduction technique. Comparison is made to prior examination from 08/25/2020. FINDINGS: Small biapical scarring. There is moderate emphysema. Small amount of tracheal debris. Sm all amount of lingular scarring unchanged. There is no mediastinal, hilar or axillary lymphadenopathy . There are no pleural or pericardial effusions. There is no pneumothorax. Heart normal in size . There is moderate coronary arterial calcification, arterial sclerosis. Upper abdomen is unremarka ble. There is mild thoracic spondylosis without osteoblastic or osteolytic lesions identified. IMPRESSION: Lung-RADS category 2, benign appearance or behavior (<1% chance of malignancy); recommend continued LDCT screening in 1 year. Reviewed, dictated and finalized at location A. CAL TRANSCRIBER
== END ==
PROVIDERS: Visit Provider Nurse Practitioner Family
DX: Z87.891 Personal history of nicotine dependence (principal)
CPT/HCPCS: 71271

== ENCOUNTER 2021-12-19 08:27 | Outpatient (CLI) | payer MEDICARE, OTHER, SELFPAY ==
[2021-12-19 09:04] LABS: Alveolar/Arterial O2 Gradient 35.4 mmHg; Base Excess ABG -2.2 mEq/l (+/-2.0); Device ROOM AIR; Fractional Inspired Oxygen 21 %; HCO3 ABG 21.4 mEq/l (22.0-26.0); Oxygen Content ABG 18.9 %vol (16.0-22.0); Oxygen Saturation ABG 95.3 % (95.0-100.0); Oxyhemoglobin 90.7 % THb (90.0-100.0); PCO2 ABG 33.5 mmHg (35.0-45.0); PO2 ABG 74.2 mmHg (80.0-100.0); PO2 FiO2 Ratio Arterial Blood 3.53 %; Site Drawn RIGHT BRACHIAL; Total Hemoglobin 14.8 g/dL (12.0-18.0); pH ABG 7.423 (7.350-7.450)
== END 2021-12-19 08:28 | disposition home or self-care (01) ==
LOC: ANHPFT 08:28
PROVIDERS: Visit Provider Internal Medicine Pulmonary Disease
DX: J44.9 Chronic obstructive pulmonary disease, unspecified (principal)
CPT/HCPCS: 36600; 82805

== ENCOUNTER 2021-12-29 12:39 | Emergency (ER) | payer MEDICARE, OTHER, SELFPAY ==
--- NOTE | ~2021-12-29 | XR_ITS ---
EXAMINATION: XR chest 1V portable DATE: 12/29/2021 13:33 INDICATION: Shortness of breath. Cough. TECHNIQUE: A single frontal view of the chest was obtained. COMPARISON: Chest 2 views 08/24/2021 FINDINGS: Calcified bilateral lung nodules are consistent with old granulomatous disease. No pleural effusion or pneumothorax. The heart size is normal. IMPRESSION: 1. No acute cardiopulmonary disease. Reviewed, dictated and finalized at location A.
[2021-12-29 12:41] VITALS: BP 100/56; PULSE 96; RESP 36; TEMP 37; O2SAT 98
--- NOTE | 2021-12-29 12:45 | ECG_ITS ---
Measurements Intervals [place] Rate: 108 P: 78 [place]: 156 QRS: 74 QRSD: 93 T: 75 QT: 321 QTc: 430 Interpretive Statements SINUS TACHYCARDIA INCOMPLETE RIGHT BUNDLE BRANCH BLOCK BASELINE ARTIFACT- I, II, III, AVR, AVL, AVF, V1-V2 ABNORMAL ECG Electronically Signed On 12-29-2021 13:25:09 CDT by Chalino Mcgovern D.O.
[2021-12-29 13:05] LABS: Basophils Percent Auto 0.5 % (0.2-1.2); Eosinophils Absolute Auto 0.3 K/mm3 (0-0.3); Hematocrit 42.5 % (37.0-47.0); Immature Granulocyte Absolute 0.01 K/mm3 (0.00-0.031); Immature Granulocyte Percent A 0.1 % (0-0.5); Lymphocytes Absolute Auto 0.72 K/mm3 (0.9-3.2); Lymphocytes Percent Auto 9.5 % (18.3-44.2); Mean Corpuscular HGB Conc 32.9 g/dl (32-36); Mean Corpuscular Hemoglobin 29.9 pg (26-34); Mean Corpuscular Volume 90.6 fl (80-100); Mean Platelet Volume 11.9 fl (7.4-10.4); Monocytes Absolute Auto 0.9 K/mm3 (0.1-0.6); Monocytes Percent Auto 11.8 % (2.6-8.5); Neutrophils Absolute Auto 5.6 K/mm3 (1.3-6.7); Neutrophils Percent Auto 74.1 % (45.5-73.1); Platelet Count Result 224 k/mm3 (150-375); Red Blood Count 4.69 M/mm3 (4.2-5.4); Red Cell Distribution Width 13.5 % (11.5-14.5); White Blood Count 7.6 K/mm3 (4.5-10.0)
[2021-12-29 13:19] LABS: Alanine Aminotransferase 35 U/L (4-35); Alkaline Phosphatase 96 U/L (38-126); Anion Gap 12 mmol/L (8-16); Aspartate Amino Transferase 36 U/L (14-36); Bilirubin,Total 0.2 mg/dL (0.2-1.3); Blood Urea Nitrogen 9 mg/dL (7-17); Calcium 9.7 mg/dL (8.4-10.2); Carbon Dioxide 19 mmol/L (22-30); Chloride 101 mmol/L (98-107); Estimated CRCL calculation 42 ml/min; Estimated Glomerular Filt Rate > 60; Glucose 240 mg/dL (65-110); Potassium 3.9 mmol/L (3.4-5.0); Sodium 132 mmol/L (137-145)
[2021-12-29] MEDS: IPRATROPIUM BR 0.02% INH SOLN 0.5 MG/2.5 ML VIAL INHALATION (14:27)
[2021-12-29] MEDS: ALBUTEROL SULFATE NEB 2.5 MG/0.5 ML INH 5 MG INHALATION (14:27)
[2021-12-29 14:28] VITALS: PULSE 105; RESP 20
[2021-12-29] MEDS: methylPREDNISolone SOD SUCC 125 MG VIAL IV PUSH (14:30)
[2021-12-29 14:34] VITALS: PULSE 103; RESP 18
--- NOTE | 2021-12-29 15:13 | ED.SOB ---
HPI - SOB/Dyspnea General Chief Complaint: Shortness of Breath/Dyspnea Stated Complaint: sob Time Seen by Provider: 12/29/21 13:18 History of Present Illness HPI Narrative: Patient is a 66-year-old female who presents ER with cough and shortness of breath. Cough is chronic but worsened over the last day. Reports she had worsening shortness of breath over the last 2 days. Associate with some sinus congestion. No fevers or chills or sweats. Has tried home nebulizers without improvement. Patient has been seen by pulmonary here in the past. She is unsure of the medications that she takes. Related Data Home Medications Medication Instructions Recorded Confirmed pantoprazole 20 mg tablet,delayed 20 mg PO QAM 09/04/19 11/17/21 release cholecalciferol (vitamin D3) 25 25 mcg PO DAILY 03/07/21 11/17/21 mcg (1,000 unit) capsule ferrous sulfate 325 mg (65 mg 325 mg PO DAILY 03/07/21 11/17/21 iron) tablet Allergies Allergy/AdvReac Type Severity Reaction Status Date / Time guaifenesin [From Mucinex] Allergy Intermediate sob Verified 11/17/21 09:14 Penicillins Allergy Unknown Rash Verified 11/17/21 09:14 sitagliptin Allergy Unknown Rash Verified 11/17/21 09:14 Review of Systems Review of Systems: All systems reviewed & are unremarkable except as noted in HPI and below Constitutional: Constitutional: Denies chills, Denies fever(s) and Denies weakness ENT: Denies nasal congestion and Denies sore throat Cardiovascular: Cardiovascular: Denies chest pain and Denies radiating jaw, neck or arm pain Respiratory: Respiratory: Reports cough, Reports dyspnea and Reports wheezing Gastrointestinal: Gastrointestinal: Denies abdominal pain, Denies nausea and Denies vomiting Neurologic: Denies syncope, Denies focal weakness and Denies numbness [facility] Past Medical History Medical History (Updated 12/29/21 @ 15:19 by Demetri Morse MD) COPD (chronic obstructive pulmonary disease) COPD exacerbation Depression Essential (primary) hypertension GERD (gastroesophageal reflux disease) Neck pain on right side SAUNDRA (obstructive sleep apnea) Other and unspecified hyperlipidemia Right shoulder pain Seasonal allergic rhinitis Sinus pressure Syncope and collapse Tobacco abuse Type 2 diabetes mellitus without complications Vitamin D deficiency Weakness of both legs Family History Family History Mother Asthma Family history of diabetes mellitus in first degree relative Family history of congestive heart failure Diabetes mellitus Acute myocardial infarction Father Family history of malignant neoplasm Family history of chronic obstructive pulmonary disease Family history of diabetes mellitus in first degree relative Diabetes mellitus Acute myocardial infarction Family history of emphysema Sibling Patient's sister is in good health Patient's brother is Family history of alcoholism Social History Social History Smoking packs per day: 1 Smoking cigarettes per day: 20.0 Years smoked: 53 Smoking pack-years: 53.00 Smoking status: Current every day smoker Second hand tobacco smoke exposure: Yes Smoking end date: 08/27/16 Additional smoking assessment comments: started smoking at age 11 Alcohol intake: never Substance use: never Substance use type: does not use Gender identity (if verbalized by the patient): Female Exam Narrative: GENERAL: Well-appearing, well-nourished, and in no acute distress. HEAD: Normocephalic, atraumatic. EYES: PERRL and EOMI. ENT: Mucous membranes moist. CHEST: Faint end expiratory wheezing. No respiratory distress. HEART: Regular rate and rhythm. Normal peripheral pulses. EXTREMITIES: Normal range of motion. No edema. SKIN: Warm, dry, no rash. NEURO: Alert and oriented x3. PSYCH: Normal mood and affect. Course Course
[2021-12-29 15:25] VITALS: BP 107/61; PULSE 109; RESP 21; TEMP 37.2; O2SAT 97
== END 2021-12-29 15:25 | disposition home or self-care (01) ==
PROVIDERS: Emergency Provider Emergency Medicine
DX: J44.1 Chronic obstructive pulmonary disease with (acute) exacerbation (principal); I10 Essential (primary) hypertension; E11.9 Type 2 diabetes mellitus without complications; E78.5 Hyperlipidemia, unspecified; G47.33 Obstructive sleep apnea (adult) (pediatric); K21.9 Gastro-esophageal reflux disease without esophagitis; E55.9 Vitamin D deficiency, unspecified; Z87.891 Personal history of nicotine dependence; Z79.84 Long term (current) use of oral hypoglycemic drugs; I45.10 Unspecified right bundle-branch block; R00.0 Tachycardia, unspecified
CPT/HCPCS: 36415; 71045; 80053; 85025; 93005; 94640; 96374; 99284; J2930

== ENCOUNTER 2022-02-06 12:37 | Outpatient (CLI) | payer MEDICARE, OTHER, SELFPAY ==
--- NOTE | 2022-02-08 07:41 | WPDSIXMINUTE ---
Six Minute Walk Procedure Procedure Performed Pulmonary Stress Test (6 min walk) Six Minute Walk Six Minute Walk: This is a 6 minute walk test. The test was performed and interpreted in accordance with the 2014 ERS/ATS task force guidelines. Findings: The patient's resting room air oxygen saturation measured by pulse oximetry was 92% and heart rate was 85 bpm. Patient ambulated for 274 meters and oxygen saturation remained 94 to 96%. Heart rate at the end of the study was 96 bpm. The patient did not qualify for supplemental oxygen at rest or with ambulation. There are no prior studies for comparison.
--- NOTE | 2022-02-08 07:43 | WPDPFTINT ---
PFT Procedure Performed PFT Procedure Performed Spirometry with Pre/Post Bronchodilator Plethysmography (Lung Vol) Diffusing Cap (DLCO) Flow Vol Loop PFT Interpretation This is a pulmonary function test with pre and post-bronchodilator spirometry, plethysmography and diffusing capacity. The test was performed and results interpreted in accordance with the 2019 and 2005 ATS/ERS Task Force guidelines respectively using the Global Lung Function Initiative-2012 reference equations. Patient demonstrated good effort and cooperation. Reproducibility criteria were met. The quality of the pre bronchodilator spirometry maneuver was Grade B and post bronchodilator spirometry maneuver was Grade B. Findings: Spirometry:There is decreased maximal expiratory airflow at all lung volumes with concave expiratory flow tracing. The pre bronchodilator FVC is 2.05 L, 77% predicted. The pre bronchodilator FEV1 is 0.93 L, 45% predicted. The pre bronchodilator FEV1: FVC ratio is 45%. The post bronchodilator FVC is 2.54 L, representing a 24% increase. The post bronchodilator FEV1 is 1.21 L, representing a 31% increase. The post bronchodilator FEV1: FVC ratio is 48%. Plethysmography: The total lung capacity is 5.74 L, 125% predicted. The post bronchodilator FVC functional residual capacity is 4.23 L, 162% predicted. The post bronchodilator residual volume is 3.61, 182% predicted. Diffusing capacity: The diffusing capacity unadjusted for hemoglobin and carboxyhemoglobin is 11.9, 60% predicted. The diffusing capacity adjusted for alveolar volume is 3.02, 67% predicted. In comparison to previous pulmonary function test performed on 02/12/2018 the post bronchodilator FVC is unchanged from 2.45 L to 2.54 L. The post bronchodilator FEV1 is unchanged from 1.38 L to 1.21 L. The total lung capacity is unchanged from 6.03 L to 5.74 L. Functional residual capacity is unchanged from 4.82 L to 4.23 L. The residual volume is unchanged from 4.04 L to 3.67 L. The diffusing capacity unadjusted for hemoglobin and carboxyhemoglobin is decreased from 14.1 to 11.9. The diffusing capacity adjusted for alveolar volume is decreased from 4.16 to 3.02. Impression: There is a severe obstructive abnormality with significant improvement after inhaling a single dose of albuterol. The increase in residual volume is consistent with air trapping from an obstructive abnormality. Hyperinflation is present is demonstrated by the increase in functional residual capacity and total lung capacity and is consistent with an obstructive abnormality. The diffusing capacity unadjusted for hemoglobin and carboxyhemoglobin is moderately decreased and remains mildly decreased when adjusted for alveolar volume. In comparison to previous pulmonary function test on 02/12/2018 there has been a greater than anticipated time dependent decrease in the diffusing capacity with no significant change in the FVC, FEV1, total lung capacity, functional residual capacity and residual volume. Clinical correlation is recommended.
== END 2022-02-06 12:38 | disposition home or self-care (01) ==
LOC: ANHPFT 12:38
PROVIDERS: PCP Family Medicine; Visit Provider Internal Medicine Pulmonary Disease
DX: R06.00 Dyspnea, unspecified (principal); J40 Bronchitis, not specified as acute or chronic; Z72.0 Tobacco use; R94.2 Abnormal results of pulmonary function studies
CPT/HCPCS: 94060; 94618; 94726; 94729

== ENCOUNTER 2022-02-16 11:45 | Outpatient (CLI) | payer MEDICARE, OTHER, SELFPAY ==
[2022-02-21 19:42] LABS: Immunoglobulin E 38 kU/L (<=114)
== END 2022-02-16 11:46 | disposition home or self-care (01) ==
LOC: ANHLAB 11:46
PROVIDERS: PCP Family Medicine; Visit Provider Internal Medicine Pulmonary Disease
DX: J45.909 Unspecified asthma, uncomplicated (principal); J44.9 Chronic obstructive pulmonary disease, unspecified
CPT/HCPCS: 36415; 82785; 86003

== ENCOUNTER 2022-05-22 13:36 | Outpatient (CLI) | payer MEDICARE, OTHER, SELFPAY ==
--- NOTE | ~2022-05-22 | XR_ITS ---
EXAMINATION: XR chest 2V 05/22/2022 13:57 INDICATION: Cough. Covid positive. PROCEDURE: 2 view chest COMPARISON: Comparison to multiple prior studies sequentially, with oldest reviewed study dated 06/28. FINDINGS: The lungs are clear. The cardiomediastinal silhouette is within normal limits. There are no pleural effusions. There is no pneumothorax suspected. IMPRESSION: 1: NO ACUTE CARDIOPULMONARY DISEASE. Reviewed, dictated and finalized at location B.
== END 2022-05-22 13:37 | disposition home or self-care (01) ==
LOC: ANHIMG 13:44
PROVIDERS: PCP Family Medicine; Visit Provider Nurse Practitioner Family
DX: R05.9 Cough, unspecified (principal); R06.02 Shortness of breath; U09.9 Post COVID-19 condition, unspecified
CPT/HCPCS: 71046

== ENCOUNTER 2022-06-25 08:17 | Emergency (ER) | payer MEDICARE, OTHER, SELFPAY ==
[2022-06-25] VITALS (9 sets, daily range): BP systolic 110–132; BP diastolic 60–70; PULSE 75–97; RESP 14–32; TEMP 36.3; O2SAT 98–100
--- NOTE | ~2022-06-25 | CT_ITS ---
EXAMINATION: CTA chest PE protocol DATE: 06/25/2022 10:42 CDT INDICATION: Midsternal chest pain TECHNIQUE: Computed tomographic angiography (CTA) of the chest was performed with 100 mL Omnipaque-35 0 intravenous contrast. The dose-length product was 193.99 mGy-cm. Maximum intensity projection 3D-re constructions of the aorta and other arteries were constructed by the technologist on a separate work station. Automated exposure control and iterative reconstruction technique were employed. COMPARISON: CT dated 09/06/2021. FINDINGS: Study is technically adequate without evidence for pulmonary embolism. No significant pleur al effusion. Small pericardial effusion. Heart size normal. There is emphysema. No endobronchial lesi ons. No pneumothorax. No focal airspace consolidation. There is apical pleural thickening/scarring. N o suspicious pulmonary nodules or masses.No focal lytic or blastic lesions. No acute osseous abnormal ity. There is lower cervical spondylosis IMPRESSION: 1. No evidence for pulmonary embolism. No acute cardiopulmonary disease. Reviewed, dictated and finalized at location A.
--- NOTE | ~2022-06-25 | XR_ITS ---
EXAMINATION: XR chest 2V 06/25/2022 08:37 INDICATION: Chest pain PROCEDURE: PA and lateral views the chest COMPARISON: Comparison to multiple prior studies sequentially, with oldest reviewed study dated 01/2021. FINDINGS: The lungs are clear. The cardiomediastinal silhouette is within normal limits. There are no pleural effusions. There is no pneumothorax suspected. There is a calcified granuloma at the rig ht apex. There are cholecystectomy clips. IMPRESSION: 1: NO ACUTE CARDIOPULMONARY DISEASE. Reviewed, dictated and finalized at location A.
--- NOTE | 2022-06-25 08:18 | ECG_ITS ---
Measurements Intervals [place] Rate: 93 P: 79 [place]: 172 QRS: 63 QRSD: 86 T: 68 QT: 331 QTc: 412 Interpretive Statements SINUS RHYTHM INCOMPLETE RIGHT BUNDLE BRANCH BLOCK COMPARED TO ECG 12/29/2021 12:49:29 SINUS RHYTHM NOW PRESENT Electronically Signed On 06-25-2022 12:17:52 CDT by Ashlie Jaramillo M.D.
[2022-06-25 08:43] LABS: Basophils Percent Auto 0.2 % (0.2-1.2); Hematocrit 42.8 % (37.0-47.0); Hemoglobin 13.6 g/dL (12.0-15.0); Immature Granulocyte Absolute 0.08 K/mm3 (0.00-0.031); Immature Granulocyte Percent A 0.6 % (0-0.5); Lymphocytes Absolute Auto 1.52 K/mm3 (0.9-3.2); Lymphocytes Percent Auto 12.2 % (18.3-44.2); Mean Corpuscular HGB Conc 31.8 g/dl (32-36); Mean Corpuscular Volume 91.3 fl (80-100); Mean Platelet Volume 11.1 fl (7.4-10.4); Monocytes Percent Auto 7.7 % (2.6-8.5); Neutrophils Absolute Auto 9.9 K/mm3 (1.3-6.7); Neutrophils Percent Auto 79.3 % (45.5-73.1); Platelet Count Result 328 k/mm3 (150-375); Red Blood Count 4.69 M/mm3 (4.2-5.4); Red Cell Distribution Width 14.6 % (11.5-14.5); White Blood Count 12.5 K/mm3 (4.5-10.0)
[2022-06-25 09:02] LABS: INR 0.9
[2022-06-25 09:03] LABS: Partial Thromboplastin Time 21.8 SECONDS (22.3-36.8)
[2022-06-25 09:13] LABS: Alanine Aminotransferase 40 U/L (6-35); Albumin Level 5.1 g/dL (3.5-5.1); Alkaline Phosphatase 104 U/L (38-126); Anion Gap 15 mmol/L (8-16); Aspartate Amino Transferase 34 U/L (14-36); Bilirubin,Total 0.4 mg/dL (0.2-1.3); Blood Urea Nitrogen 9 mg/dL (7-17); Calcium 9.7 mg/dL (8.4-10.2); Carbon Dioxide 18 mmol/L (22-30); Chloride 103 mmol/L (98-107); Estimated CRCL calculation 50 ml/min; Estimated Glomerular Filt Rate > 60; Glucose 243 mg/dL (65-110); Lipase 176 U/L (23-300); Sodium 136 mmol/L (137-145)
[2022-06-25 09:25] LABS: Troponin I < 0.012 ng/mL (0.000-0.034)
[2022-06-25] MEDS: MORPHINE SULFATE (*CRX) 4 MG/ML INJ IV PUSH (10:03)
[2022-06-25] MEDS: ASPIRIN 81 MG CHEWABLE TABLET 324 MG PO (10:03)
--- NOTE | 2022-06-25 11:56 | ED.CHESTPAIN ---
HPI - Chest Pain General Chief Complaint: Chest Pain Stated Complaint: chest pain Time Seen by Provider: 06/25/22 09:38 History of Present Illness HPI narrative: Patient is a 67-year-old female who presents ER with chest pain. Left-sided. Sharp. Also is occurring in her back. Worse with deep breath and not with exertion. Patient recently diagnosed with sinus infection has been placed on antibiotics. She has been having mild cough but does not member coughing hard enough to cause her self injury. She denies being struck with anything. No lower extremity swelling or cramping. Denies fevers or chills. No hemoptysis. Patient recently had COVID-19 and was able to return to work. Related Data Home Medications Medication Instructions Recorded Confirmed pantoprazole 20 mg tablet,delayed 20 mg PO QAM 09/04/19 06/22/22 release (Protonix) clobetasol 0.05 % topical ointment 1 applic topical DAILY 06/22/22 06/22/22 Allergies Allergy/AdvReac Type Severity Reaction Status Date / Time guaifenesin [From Mucinex] Allergy Intermediate sob Verified 06/22/22 10:39 Penicillins Allergy Unknown Rash Verified 06/22/22 10:39 sitagliptin Allergy Unknown Rash Verified 06/22/22 10:39 Review of Systems Review of Systems: All systems reviewed & are unremarkable except as noted in HPI and below Constitutional: Constitutional: Denies chills, Denies fatigue and Denies fever(s) ENT: Denies nasal congestion and Denies sore throat Cardiovascular: Cardiovascular: Reports chest pain, Denies rapid heart rate and Reports radiating jaw, neck or arm pain Respiratory: Respiratory: Denies chest congestion, Denies cough, Denies dyspnea and Denies wheezing Comments: Pain with deep breath Gastrointestinal: Gastrointestinal: Denies abdominal pain, Denies nausea and Denies vomiting Genitourinary: Genitourinary: Denies nocturia and Denies dysuria Musculoskeletal: Musculoskeletal: Reports back pain, Denies myalgias and Denies arthralgias [facility] Past Medical History Medical History (Updated 06/25/22 @ 12:00 by Demetri Morse MD) COPD (chronic obstructive pulmonary disease) COPD exacerbation Depression Essential (primary) hypertension GERD (gastroesophageal reflux disease) Neck pain on right side SAUNDRA (obstructive sleep apnea) Other and unspecified hyperlipidemia Right shoulder pain Seasonal allergic rhinitis Sinus pressure Syncope and collapse Tobacco abuse Type 2 diabetes mellitus without complications Vitamin D deficiency Weakness of both legs Family History Family History Mother Asthma Family history of diabetes mellitus in first degree relative Family history of congestive heart failure Diabetes mellitus Acute myocardial infarction Father Family history of malignant neoplasm Family history of chronic obstructive pulmonary disease Family history of diabetes mellitus in first degree relative Diabetes mellitus Acute myocardial infarction Family history of emphysema Sibling Patient's sister is in good health Patient's brother is Family history of alcoholism Social History Social History Smoking packs per day: 1 Smoking cigarettes per day: 20.0 Years smoked: 53 Smoking pack-years: 53.00 Smoking status: Current every day smoker Second hand tobacco smoke exposure: Yes Smoking end date: 08/27/16 Additional smoking assessment comments: started smoking at age 11 Alcohol intake: never Substance use: never Substance use type: does not use Gender identity (if verbalized by the patient): Female Exam Narrative: GENERAL: Well-appearing, frail, and in no acute distress. HEAD: Normocephalic, atraumatic. ENT: Mucous membranes moist. NECK: Supple. CHEST: Clear to auscultation. No respiratory distress. HEART: Regular rate and rhythm. Normal peripheral pulses.
[2022-06-25 12:04] LABS: Troponin I < 0.012 ng/mL (0.000-0.034)
== END 2022-06-25 13:07 | disposition home or self-care (01) ==
PROVIDERS: Emergency Provider Emergency Medicine; PCP Family Medicine
DX: R07.89 Other chest pain (principal); J44.9 Chronic obstructive pulmonary disease, unspecified; I10 Essential (primary) hypertension; K21.9 Gastro-esophageal reflux disease without esophagitis; E78.5 Hyperlipidemia, unspecified; G47.33 Obstructive sleep apnea (adult) (pediatric); E55.9 Vitamin D deficiency, unspecified; Z86.16 Personal history of COVID-19; Z87.891 Personal history of nicotine dependence; I45.10 Unspecified right bundle-branch block
CPT/HCPCS: 36415; 71046; 71275; 80053; 83690; 84484; 85025; 85610; 85730; 93005; 96374; 99284; A9270; J2270; Q9967

== ENCOUNTER 2022-09-21 09:38 | Outpatient (CLI) | payer MEDICARE, OTHER, SELFPAY ==
--- NOTE | ~2022-09-21 | CT_ITS ---
EXAMINATION: CT lung screening DATE: 09/21/2022 10:01 INDICATION: h/o tobacco abuse TECHNIQUE: Computed tomography (CT) of the chest was performed without intravenous contrast. Addition al 3D reconstructions utilizing coronal maximum intensity projection (MIP) were performed. Automated exposure control and iterative reconstruction technique were employed. The dose-length product was 62 .77 mGy-cm. COMPARISON: None FINDINGS: 2 mm noncalcified nodule along the inferior left major fissure, potentially an intrafissural lymph no de. 4 mm triangular nodule along an accessory fissure the superior from the basilar segmen ts of the right lower lobe also likely an intrafissural lymph node. There are few small calcified nod ules in the right upper lobe along with calcified right hilar and mediastinal lymph nodes consistent with old granulomatous disease. No pneumonia, pulmonary edema or pleural effusion. Heart size is norm al. Atherosclerotic coronary artery calcific location. Small pericardial effusion. Thoracic aorta is normal in caliber. No pathologically enlarged thoracic lymphadenopathy. Mild S-shaped curvature of th e thoracic spine with mild to moderate spondylosis. IMPRESSION: 1. Lung-RADS category 2: Benign appearance or behavior. Continue annual screening with noncontrast lo w-dose chest CT in 12 months. Reviewed, dictated and finalized at location L. IN CLEANER HAND IMPRESSION: 1. Lung-RADS category 2: Benign appearance or behavior. Continue annual screeni ng with noncontrast low-dose chest CT in 12 months.
== END 2022-09-21 09:39 | disposition home or self-care (01) ==
PROVIDERS: PCP Family Medicine; Visit Provider Internal Medicine Pulmonary Disease
DX: Z12.2 Encounter for screening for malignant neoplasm of respiratory organs (principal); Z87.891 Personal history of nicotine dependence
CPT/HCPCS: 71271

== ENCOUNTER 2022-11-02 09:35 | Outpatient (CLI) | payer MEDICARE, OTHER, SELFPAY ==
--- NOTE | ~2022-11-02 | MM_ITS ---
EXAMINATION: MM screening [facility] BI w oliver HISTORY: Screening mammogram TECHNIQUE: Craniocaudal and mediolateral oblique 3-D tomosynthesis images were obtained and synthetic 2-D images were generated. CAD analysis was submitted and interpreted. COMPARISON: 08/25/2021, 07/10/2019, 05/29/2017 BREAST PARENCHYMAL COMPOSITION: There are scattered areas of fibroglandular density. FINDINGS: No suspicious mass, calcification, or architectural distortion are identified in either ella ast to suggest malignancy. There has been no suspicious interval change. IMPRESSION: 1. No mammographic evidence of malignancy. 2. Recommend routine screening mammography in one year. BI-RADS Category 1: Negative Reviewed, dictated and finalized at location A. OR INTERNAL AUDITOR
== END 2022-11-02 09:36 | disposition home or self-care (01) ==
PROVIDERS: PCP Family Medicine; Visit Provider Family Medicine
DX: Z12.31 Encounter for screening mammogram for malignant neoplasm of breast (principal)
CPT/HCPCS: 77063; 77067

== ENCOUNTER → 2022-11-02 13:42 | Outpatient (CLI) | payer MEDICARE, OTHER, SELFPAY ==
--- NOTE | ~2022-11-02 | XR_ITS ---
XR elbow RT 2V DATE: 11/02/2022 14:51 INDICATION: Generalized right elbow pain following a fall in July 2022 TECHNIQUE: AP and lateral views COMPARISON: None FINDINGS: No fracture or dislocation or joint effusion. No periosteal reaction or bone destruction. IMPRESSION: Negative Reviewed, dictated and finalized at location L. DAY CARE PROVIDER IMPRESSION: Negative
--- NOTE | ~2022-11-02 | XR_ITS ---
XR hand LT min 3V DATE: 11/02/2022 14:51 INDICATION: Bilateral generalized hand pain following fall in July 2022 TECHNIQUE: 3 views COMPARISON: None FINDINGS: No fracture or dislocation, periosteal reaction or bone destruction. No erosive change or chondrocalcinosis. IMPRESSION: No significant abnormality Reviewed, dictated and finalized at location L. MECHANIC IMPRESSION: No significant abnormality
--- NOTE | ~2022-11-02 | XR_ITS ---
EXAMINATION: XR hand RT min 3V DATE: 11/02/2022 14:51 INDICATION: Right hand pain post fall TECHNIQUE: Posteroanterior, oblique and lateral views of the right hand were obtained. COMPARISON: Right hand and wrist radiographs dated 11/25/2020 FINDINGS: Bone alignment is normal. No fracture. Mild osteoarthritis at a few of the interphalangeal joints. So ft tissues are unremarkable. IMPRESSION: 1. 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 No acute osseous abnor mality. Reviewed, dictated and finalized at location A. LY NURSE PRACTITIONER IMPRESSION: 1. 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 No acute osseous abnormality.
--- NOTE | ~2022-11-02 | XR_ITS ---
XR hip BI 2V w AP pelvis DATE: 11/02/2022 14:49 INDICATION: Bilateral hip pain following a fall in July 2022 TECHNIQUE: AP pelvis. AP and lateral views of each hip COMPARISON: November 25, 2020 bilateral hips FINDINGS: Degenerative disc disease and degenerative changes apophyseal joints in the lower lumbar ar ea. Normal alignment at the pubic symphysis and sacroiliac joints. Hip joint spaces are symmetric and relatively well preserved. No fracture, dislocation, avascular nec rosis or bone destruction of either hip is detected. IMPRESSION: No significant abnormality of the hips Degenerative changes of the lower lumbar spine Reviewed, dictated and finalized at location L. T SUPERVISOR
--- NOTE | ~2022-11-02 | XR_ITS ---
XR shoulder RT min 2V DATE: 11/02/2022 14:50 INDICATION: Right shoulder pain following a fall in July 2022 TECHNIQUE: 4 views COMPARISON: 03/15/2020 the right shoulder FINDINGS: There is diffuse osteopenia. There is evidence of rotator cuff atrophy. Mild osteoarthritis of the right glenohumeral joint. No fracture, dislocation, periosteal reaction or bone destruction or abnormal right shoulder soft tis rupal calcification. IMPRESSION: Osteopenia Rotator cuff atrophy Mild glenohumeral osteoarthritis Reviewed, dictated and finalized at location L. M AGENT
== END ==
PROVIDERS: PCP Family Medicine; Visit Provider Physician Assistant
DX: M25.551 Pain in right hip (principal); M25.552 Pain in left hip; M25.521 Pain in right elbow; M19.041 Primary osteoarthritis, right hand; M51.36 Other intervertebral disc degeneration, lumbar region; M19.011 Primary osteoarthritis, right shoulder; M85.811 Other specified disorders of bone density and structure, right shoulder
CPT/HCPCS: 73030; 73070; 73130; 73521

== ENCOUNTER 2023-02-19 10:06 | Emergency (ER) | payer MEDICARE, OTHER, SELFPAY ==
--- NOTE | ~2023-02-19 | XR_ITS ---
XR chest 2V DATE: 02/19/2023 12:26 INDICATION: Cough, shortness of breath TECHNIQUE: PA and lateral views COMPARISON: 09/21/2019 CT lung screening 06/25/2022 CT pulmonary scan 06/25/2022 PA and lateral chest FINDINGS: Normal heart size. Aortic calcification. No hilar or mediastinal enlargement. The lungs are hyperinflated but clear of infiltrate or consolidation. No pleural effusion or pulmonar y vascular congestion or pneumothorax. Status post cholecystectomy Diffuse osteopenia. Mild thoracic scoliosis and degenerative change. IMPRESSION: Moderate bilateral hyperinflation suggesting obstructive airways disease No active cardiac pulmonary disease Aortic calcification Status post cholecystectomy Reviewed, dictated and finalized at location A. IMPRESSION: Moderate bilateral hyperinflation suggesting obstructive airways di sease No active cardiac pulmonary disease Aortic calcification Status post cholecystectomy
[2023-02-19 11:09] VITALS: BP 111/58; PULSE 80; RESP 16; TEMP 36.4; O2SAT 98
[2023-02-19 12:00] VITALS: PULSE 20
[2023-02-19] MEDS: ALBUTEROL SULFATE NEB 2.5 MG/3 ML INH INHALATION (12:01)
[2023-02-19] MEDS: IPRATROPIUM BR 0.02% INH SOLN 0.5 MG/2.5 ML VIAL INHALATION (12:02)
[2023-02-19 12:13] VITALS: PULSE 20
[2023-02-19 12:20] LABS: Basophils Percent Auto 0.3 % (0.2-1.2); Hematocrit 45.3 % (37.0-47.0); Hemoglobin 14.3 g/dL (12.0-15.0); Immature Granulocyte Absolute 0.02 K/mm3 (0.00-0.031); Immature Granulocyte Percent A 0.3 % (0-0.5); Lymphocytes Absolute Auto 1.69 K/mm3 (0.9-3.2); Mean Corpuscular HGB Conc 31.6 g/dl (32-36); Mean Corpuscular Hemoglobin 28.8 pg (26-34); Mean Corpuscular Volume 91.3 fl (80-100); Mean Platelet Volume 11.3 fl (7.4-10.4); Monocytes Absolute Auto 0.7 K/mm3 (0.1-0.6); Monocytes Percent Auto 10.1 % (2.6-8.5); Neutrophils Absolute Auto 4.3 K/mm3 (1.3-6.7); Neutrophils Percent Auto 64.3 % (45.5-73.1); Platelet Count Result 287 k/mm3 (150-375); Red Blood Count 4.96 M/mm3 (4.2-5.4); Red Cell Distribution Width 14.4 % (11.5-14.5); White Blood Count 6.8 K/mm3 (4.5-10.0)
[2023-02-19 12:30] LABS: Alanine Aminotransferase 52 U/L (6-35); Albumin Level 4.8 g/dL (3.5-5.1); Alkaline Phosphatase 87 U/L (38-126); Anion Gap 6 mmol/L (8-16); Aspartate Amino Transferase 34 U/L (14-36); Bilirubin,Total 0.4 mg/dL (0.2-1.3); Blood Urea Nitrogen 7 mg/dL (7-17); Calcium 10.1 mg/dL (8.4-10.2); Carbon Dioxide 29 mmol/L (22-30); Chloride 104 mmol/L (98-107); Estimated CRCL calculation 60 ml/min; Estimated Glomerular Filt Rate > 60; Glucose 108 mg/dL (65-110); Potassium 4.2 mmol/L (3.4-5.0); Sodium 139 mmol/L (137-145)
--- NOTE | 2023-02-19 14:24 | ED.GENADULT ---
HPI - General Adult General Chief complaint: Upper Respiratory Infection Stated complaint: cat/cough/rib pain Time Seen by Provider: 02/19/23 11:38 History of Present Illness HPI narrative: Patient is a 67-year-old female who presents ER with cough. She reports over the last 4 days she has had sinus congestion with a lot of postnasal drip. It is made her voice hoarse. She has frequent cough. She has history of COPD. She uses her inhaler. She was swabbed for COVID at a separate facility and it was negative. No chest pain or chest pressure. No exertional dyspnea. Related Data Home Medications Medication Instructions Recorded Confirmed pantoprazole 20 mg tablet,delayed 20 mg PO QAM 09/04/19 01/15/23 release (Protonix) clobetasol 0.05 % topical ointment 1 applic topical DAILY 06/22/22 01/15/23 Allergies Allergy/AdvReac Type Severity Reaction Status Date / Time guaifenesin [From Mucinex] Allergy Intermediate sob Verified 02/19/23 11:15 Penicillins Allergy Unknown Rash Verified 02/19/23 11:15 sitagliptin Allergy Unknown Rash Verified 02/19/23 11:15 Review of Systems Review of Systems: All systems reviewed & are unremarkable except as noted in HPI and below Constitutional: Constitutional: Denies chills, Reports fatigue and Denies fever(s) ENT: Reports nasal congestion and Reports sore throat Comments: Hoarseness of the voice Cardiovascular: Cardiovascular: Denies chest pain and Denies rapid heart rate Respiratory: Respiratory: Reports cough, Reports dyspnea and Denies wheezing Gastrointestinal: Gastrointestinal: Denies abdominal pain, Denies nausea and Denies vomiting [facility], [facility] Past Medical History Medical History (Updated 02/19/23 @ 14:28 by Demetri Morse MD) COPD (chronic obstructive pulmonary disease) COPD exacerbation Depression Essential (primary) hypertension GERD (gastroesophageal reflux disease) Neck pain on right side SAUNDRA (obstructive sleep apnea) Other and unspecified hyperlipidemia Right shoulder pain Seasonal allergic rhinitis Sinus pressure Syncope and collapse Tobacco abuse Type 2 diabetes mellitus without complications Vitamin D deficiency Weakness of both legs Surgical History Surgical History (Updated 01/18/23 @ 13:48 by Mariann Andrade CMA) H/O repair of left rotator cuff H/O repair of right rotator cuff History of bunionectomy Hx of cholecystectomy Family History Family History Mother Asthma Family history of diabetes mellitus in first degree relative Family history of congestive heart failure Diabetes mellitus Acute myocardial infarction Father Family history of malignant neoplasm Family history of chronic obstructive pulmonary disease Family history of diabetes mellitus in first degree relative Diabetes mellitus Acute myocardial infarction Family history of emphysema Sibling Patient's sister is in good health Patient's brother is Family history of alcoholism Social History Social History Smoking packs per day: 1 Smoking cigarettes per day: 20.0 Years smoked: 53 Smoking pack-years: 53.00 Smoking status: Current every day smoker Second hand tobacco smoke exposure: Yes Smoking end date: 08/27/16 Additional smoking assessment comments: started smoking at age 11 Alcohol intake: never Substance use: never Substance use type: does not use Living arrangements: with family Occupation/Education: occupation Gender identity (if verbalized by the patient): Female Exam Narrative: GENERAL: Well-appearing, well-nourished, and in no acute distress. HEAD: Normocephalic, atraumatic. EYES: PERRL and EOMI. ENT: Mucous membranes moist. Normal-appearing posterior oropharynx without uvular edema or swelling of the tongue. CHEST: Clear to auscultation. No respiratory distress. HEART: Regular
== END 2023-02-19 14:32 | disposition home or self-care (01) ==
PROVIDERS: Emergency Provider Emergency Medicine; PCP Family Medicine
DX: J06.9 Acute upper respiratory infection, unspecified (principal); J44.9 Chronic obstructive pulmonary disease, unspecified; I10 Essential (primary) hypertension; E11.9 Type 2 diabetes mellitus without complications; F17.210 Nicotine dependence, cigarettes, uncomplicated
CPT/HCPCS: 36415; 71046; 80053; 85025; 94640; 99283

== ENCOUNTER 2023-03-07 14:36 | Emergency (ER) | payer MEDICARE, OTHER, SELFPAY ==
--- NOTE | ~2023-03-07 | XR_ITS ---
EXAMINATION: XR chest 2V DATE: 03/07/2023 15:10 INDICATION: Nonproductive cough and congestion TECHNIQUE: PA and lateral views of the chest were obtained. COMPARISON: Chest radiograph dated 02/19/[address] dated 09/21/2022 FINDINGS: Again seen is hyperexpansion of lungs with mild flattening of the diaphragm and increased lucency wit h some architectural distortion in the upper lung zones consistent with emphysema better appreciated on prior CT. Calcified nodule at the right apex consistent with old granulomatous disease. No other a irspace opacities, pulmonary edema, pleural effusion or pneumothorax. The cardiomediastinal silhouett e is normal. Mild thoracic spondylosis. IMPRESSION: 1. Emphysema. No acute cardiopulmonary disease. Reviewed, dictated and finalized at location A.
[2023-03-07 14:44] VITALS: BP 92/53; PULSE 81; RESP 18; TEMP 36.6; O2SAT 99
--- NOTE | 2023-03-07 15:01 | ED.URI ---
HPI - URI/Sore Throat General Chief Complaint: Upper Respiratory Infection Stated Complaint: Congestion, can't cough it up Time Seen by Provider: 03/07/23 14:50 Source: patient and RN notes reviewed History of Present Illness HPI Narrative: Patient is a 67-year-old female who presents to urgent care with complaints of cough, congestion and increasing shortness of breath. Patient does have a history of COPD/emphysema and is being treated currently by her psychology tech. Patient was seen in the emergency room on February 19 and given a Medrol Dosepak with a negative chest x-ray. Patient then went to her PCP on February 23 and given a Z-Tom and an increased dose of steroids. Patient saw her psychology tech last Sunday who did not change any medication or inhaler use and was aware of her current symptoms. Patient currently does not use oxygen and continues to smoke. No other acute complaints. Patient aware of the plan of care. Some parts of this dictation were generated by voice recognition software and may contain typographical and/or grammatical inaccuracies. Related Data Home Medications Medication Instructions Recorded Confirmed cholecalciferol (vitamin D3) 125 125 mcg PO DAILY 02/26/23 03/07/23 mcg (5,000 unit) tablet (Vitamin D3) Allergies Allergy/AdvReac Type Severity Reaction Status Date / Time guaifenesin [From Mucinex] Allergy Intermediate sob Verified 03/07/23 14:56 Penicillins Allergy Unknown Rash Verified 03/07/23 14:56 sitagliptin Allergy Unknown Rash Verified 03/07/23 14:56 Review of Systems Review of Systems: CONSTITUTIONAL: Denies fever, chills, or sweats. EYES: Denies visual changes, redness, or discharge. ENT: Denies rhinorrhea, sore throat, or otalgia. Reports of sinus congestion CARDIOVASCULAR: Denies chest pain, palpitations, or edema. RESPIRATORY: Reports chest congestion, cough and acute on chronic dyspnea GASTROINTESTINAL: Denies abdominal pain, nausea, vomiting, or diarrhea. GENITOURINARY: Denies dysuria or hematuria. SKIN: Denies rash or itching. MUSCULOSKELETAL: Denies back pain, joint pain, or myalgia. NEUROLOGIC: Denies headache, numbness, or weakness. All other systems reviewed are negative, except as documented in HPI. [facility] Past Medical History Medical History COPD (chronic obstructive pulmonary disease) COPD exacerbation Depression Essential (primary) hypertension GERD (gastroesophageal reflux disease) Neck pain on right side SAUNDRA (obstructive sleep apnea) Other and unspecified hyperlipidemia Right shoulder pain Seasonal allergic rhinitis Sinus pressure Syncope and collapse Tobacco abuse Type 2 diabetes mellitus without complications Vitamin D deficiency Weakness of both legs Surgical History Surgical History H/O repair of left rotator cuff H/O repair of right rotator cuff History of bunionectomy Hx of cholecystectomy Family History Family History Mother Asthma Family history of diabetes mellitus in first degree relative Family history of congestive heart failure Diabetes mellitus Acute myocardial infarction Father Family history of malignant neoplasm Family history of chronic obstructive pulmonary disease Family history of diabetes mellitus in first degree relative Diabetes mellitus Acute myocardial infarction Family history of emphysema Sibling Patient's sister is in good health Patient's brother is Family history of alcoholism Social History Social History (Updated 02/26/23 @ 10:59 by Rachell Tijerina MA) Smoking packs per day: 0.50 Smoking cigarettes per day: 10.0 Years smoked: 53 Smoking pack-years: 26.50 Smoking status: Former smoker (Quit 02/18/23) Second hand tobacco smoke exposure: Yes Smoking end date: 08/27/16 Additi
== END 2023-03-07 15:38 | disposition home or self-care (01) ==
PROVIDERS: Emergency Provider Nurse Practitioner Family; PCP Family Medicine
DX: J44.9 Chronic obstructive pulmonary disease, unspecified (principal); I10 Essential (primary) hypertension; K21.9 Gastro-esophageal reflux disease without esophagitis; E78.49 Other hyperlipidemia; E11.9 Type 2 diabetes mellitus without complications; E55.9 Vitamin D deficiency, unspecified; F17.200 Nicotine dependence, unspecified, uncomplicated
CPT/HCPCS: 71046; 99213; G0463

== ENCOUNTER → 2023-07-23 10:56 | Outpatient (CLI) | payer MEDICARE, OTHER, SELFPAY ==
--- NOTE | ~2023-07-23 | XR_ITS ---
AP view of the pelvis and AP and lateral views of the left hip Clinical history: Pain COMPARISON: 11/02/2022 Findings: No acute fracture or dislocation is seen. Osseous alignment is anatomic. Bilateral hip and SI joint spaces are preserved. Soft tissues are unremarkable. Impression: No significant abnormality is seen. Reviewed, dictated and finalized at [facility]. INSPECTOR Impression: No significant abnormality is seen.
== END ==
PROVIDERS: PCP Family Medicine; Visit Provider Family Medicine
DX: M25.552 Pain in left hip (principal)
CPT/HCPCS: 73502

== ENCOUNTER 2023-09-24 13:33 | Outpatient (CLI) | payer MEDICARE, OTHER, SELFPAY ==
--- NOTE | ~2023-09-24 | CT_ITS ---
CT Scan of the Chest without Contrast: Clinical Indication: Lung cancer screening, personal history of nicotine dependence Technique: Contiguous sections were acquired throughout the chest without intravenous contrast. Dose reduction technique was used on this scan by utilizing automated exposure control and iterative recon struction technique. The dose-length product (DLP) was 75.12 mGy-cm. COMPARISON: 09/21/2022 Findings: There is no evidence of any significant mediastinal, hilar or axillary lymphadenopathy. Calcified med iastinal lymph nodes present. There are atherosclerotic ulcerations of the aorta and coronary arterie s. There is no evidence of pleural or pericardial effusion. There is moderate emphysema with right upper lobe and right apical scarring. Images through the upper abdomen reveal no abnormalities. Impression: Lung RADS 2: Benign appearance. 12 month follow-up screening CT advised. Reviewed, dictated and finalized at location . GER CONTRACTING Impression: Lung RADS 2: Benign appearance. 12 month follow-up screening CT advised.
== END 2023-09-24 13:34 | disposition home or self-care (01) ==
PROVIDERS: PCP Family Medicine; Visit Provider Internal Medicine Pulmonary Disease
DX: Z12.2 Encounter for screening for malignant neoplasm of respiratory organs (principal); Z87.891 Personal history of nicotine dependence
CPT/HCPCS: 71271

== ENCOUNTER 2024-08-28 10:23 | Outpatient (CLI) | payer MEDICARE, OTHER, SELFPAY ==
--- NOTE | ~2024-08-28 | XR_ITS ---
XR ankle RT min 3V Ordering provider: Shana Steinberg PA-C History: . M25.571 - Pain in right ankle and joints of right foot . Comparison: None. FINDINGS: BONES: No acute fracture or dislocation. JOINT SPACES: Normal. SOFT TISSUES: Normal. IMPRESSION: No acute osseous abnormality of the right ankle. Reviewed, dictated and finalized at location A. ESTATE AGENCY LICENSEE
== END 2024-08-28 10:24 | disposition home or self-care (01) ==
PROVIDERS: PCP Family Medicine; Visit Provider Physician Assistant Medical
DX: M25.571 Pain in right ankle and joints of right foot (principal)
CPT/HCPCS: 73610

== ENCOUNTER 2024-10-06 10:56 | Outpatient (CLI) | payer MEDICARE, OTHER, SELFPAY ==
--- NOTE | ~2024-10-06 | CT_ITS ---
CT Scan of the Chest without Contrast: Clinical Indication: Lung cancer screening, nicotine dependence Technique: Contiguous sections were acquired throughout the chest without intravenous contrast. Dose reduction technique was used on this scan by utilizing automated exposure control and iterative recon struction technique. The dose-length product (DLP) was 56.96 mGy-cm. COMPARISON: 09/24/2023 Findings: There is no evidence of any significant mediastinal, hilar or axillary lymphadenopathy. Coronary gracie ry calcification are present. Densely calcified right paratracheal lymph node present. Minimal perica rdial fluid present.. No pleural effusions. The lungs are clear. No pulmonary nodules or infiltrates are noted. There is moderate to advanced emp hysema. There is linear right upper lobe scarring. Images through the upper abdomen reveal no abnormalities. Impression: Lung RADS 1: Negative. 12 month follow-up screening CT advised. Moderate to advanced emphysema. Reviewed, dictated and finalized at [facility]. SAUCIER Impression: Lung RADS 1: Negative. 12 month follow-up screening CT advised. Moderate to advanced emphysema.
--- OUTSIDE RECORDS SUMMARY | 2024-10-06 11:50 | XMS_ITS ---
Author Organization [facility] Address [address] [place] [address] Care Team Providers Care Banking Teacher Name Role Phone Zana Toscano MD Primary Care Provider Jessica Velez [phone] REASON FOR VISIT [employer] - New [employer] insurance info needed Encounters Encounter Location Date Provider Diagnosis [facility] [address] [place] [address] 09/10/2024 [facility] Plan Of Treatment Next Appt Details Provider Name:Minesh VaughanEric Morrell , 11/06/2024 09:00:00 AM, [address] [facility], [address], [address], Progress Notes * Sandra DAYDOB:[birth year] (69 yo F)Acc No.[id number]:09/10/2024 Patient: Sandra HEMPHILL :1955 A ge:69 Y S ex:Female Address:[facility] [address] , [place], [address] * true * Date: Generated for Printi ng/Faxing/eTransmitting on: 0 10/06/2024 11:50 AM 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
--- OUTSIDE RECORDS SUMMARY | 2024-10-06 11:51 | XMS_ITS | Continuity of Care Document ---
Author Organization [facility] [place] [address] [place] [address] Phone Care Team Providers Care Inhalation Therapist Name Role Phone Ha Cabral MD, MD Unavailable Unavailab le Allergies, Adverse Reactions, Alerts Substance Reaction Status Criticality penicillin G Active No Information Medications Medication Instructions Dosage Effective Dates (start - stop) Status Comments prednisolone acetate 1 % eye drops,suspension instill 1 Drop by Ophthalmic route in the operated eye QID as directed - Active Symbicort 160 mcg-4.5 mcg/actuation HFA aerosol inhaler inhale 2 puff by inhalation route 2 times every day in the morning and evening 2.00 puff - Active Januvia 100 mg tablet take 1 tablet by oral route every day 100 MG - Active lisinopril 10 mg tablet take 1 tablet by oral route every day 10 MG - Active omeprazole 40 mg capsule,delayed release take 1 capsule by oral route every day before a meal 40 MG - Active pravastatin 40 mg tablet take 1 tablet by oral route every day 40 MG - Active metformin 1,000 mg tablet take 1 tablet by oral route 2 times every day with morning and evening meals 1000 MG - Active WelChol 625 mg tablet take 6 tablet by oral route every day with a meal and liquid 3750 MG - Active Polytrim 10,000 unit-1 mg/mL eye drops Instill 1 drop into Operated Eye QID as directed - No Longer Active Procedures Procedure Date Eye Exam, New Patient IOLMaster-Technical No Charge Refraction Advance Directives Directive Yes / No Effective Date File Name No Information Encounters Encounter Description Practice Location Reason(s) For Visit Diagnoses Date Provider Providers Copied on Encounter [facility], [address], [place], [place], [id number], tel:[phone] SEC Dona Fernandez No Information 5 Misha Bonner. [address], [address], [address], . [phone] [facility], [address], [place], [place], [id number], tel:[phone] SEC Ernesto FLOYD Professional blurry vision (chief complaint) glare (chief complaint) Nuclear sclerosisAge-re lated post subcapsular cataractDiabete s Misha Bonner. [address], [address], [address], . [phone] Referring Provider: Gini Wallace , [address] [place] [address], [facility] tel:[phone] Family History Family Member Type Diagnosis Age At Onset Paternal grandmother Problem (finding) glaucoma Payers Payer name Insurance type Covered democrat ID Authormeeta amry(s) [facility] [id number] Social History Type Description Quantity Date Captured [...]
--- OUTSIDE RECORDS SUMMARY | 2024-10-06 11:51 | XMS_ITS ---
Author Organization [facility] Address [address] [place] [address] Care Team Providers Care Flaring Machine Operator Name Role Phone Dorcas URIBE, Zana Primary Care Provider UnavailJessica Choe Unavailable [phone] Minesh Morrell [phone] REASON FOR VISIT FASENRA Only Encounters Encounter Location Date Provider Diagnosis [facility] [address] [place] [address] 09/04/2024 Minesh Morrell Plan Of Treatment Next Appt Details Provider Name:Minesh Morrell , 11/06/2024 09:00:00 AM, [address], [address], [place], [address], Progress Notes * Sandra DAYDOB:[birth year] (69 yo F)Acc No.[id number]:09/04/2024 FASENRA Only Patient: Yuli KWAKUGILBERTCRISTOBAL Sandra Provider: Fam Morrell MD :1955 A ge:69 Y S ex:Female Date:09/04/2024 Address:[address] [place], [place] Pcp:Zana Toscano MD Subjective: * Chief Complaints: * 1 . FASENRA Only. * Medical History: Objective: * Vitals: Assessment: Plan: * Treatment: * Billing Information: * Visit Code: * Procedure Codes: * Electronic signature of Girma Morrell MD, FAAAAI on 10/06/2024 at 11:50 AM NEWSPAPER CORRESPONDENT Sign off status: Pending * Provider: Fam Morrell MD Date: 0 09/04/2024 Generated for Tegan etienne/Danielito/Zbigniew on: 0 10/06/2024 11:50 AM NEWSPAPER CORRESPONDENT
--- OUTSIDE RECORDS SUMMARY | 2024-10-06 11:51 | XMS_ITS ---
Author Organization [facility] Address [address] [place] [address] Care Team Providers Care Assessment Clinician Name Role Phone Zana Toscano MD Primary Care Provider UnavailJessica Choe Unavailable [phone] Minesh Morrell Unavailable [phone] REASON FOR VISIT Severe eosinophilic asthma follow-up, ready for FASENRA administration as scheduled today, Needs evaluation for pre-FASENRA health questionaire to assess health status and medication review Medications Medication SIG (Take, Route, Frequency, Duration) Notes Start Date End Date Status Omeprazole 40 MG for 30 Days N ot-Taking Trelegy Ellipta 200 MCG-62.5 MCG-25 MCG/INH 1 PUFF(S) INHALED ONCE A DAY for 30 DAY(S) *Please review and pick correct strength-formula tion from TxtFeedbackspan options. If intended option is not shown, discontinue and re-order from Quick Search* Not-Taking EPINEPHrine 0.3 MG DIRECTED INTRAMUSCULARLY ONCE for 30 DAY(S) *Please review and pick correct strength-formula tion from Medispan options. If intended option is not shown, discontinue and re-order from Quick Search* Not-Taking Vitamin D3 1250 MCG 1 CAP(S) ORALLY ONCE A WEEK for 56 DAYS *Please review and pick correct strength-formula tion from TxtFeedbackspan options. If intended option is not shown, discontinue and re-order from Quick Search* 10/31/2022 Not-Taking Doxycycline Hyclate 100 MG 1 cap(s) orally 2 times a day Not-Taking Montelukast Sodium 10 MG 1 tab(s) orally once a day Not-Taking Spiriva HandiHaler 18 MCG 1 cap(s) inhaled once a day Not-Taking Budesonide 0.5 MG/2ML 2 mL by nebulizer 2 times a day Not-Taking Lisinopril 5 MG 1 tab(s) orally once a day Not-Taking Vitamin D3 800 IU *Please review and pick correct strength-formula tion from [employer] options. If intended option is not shown, discontinue and re-order from Quick Search* Not-Taking LORazepam 0.5 MG 1 tab(s) orally every 8 hours Not-Taking Atorvastatin Calcium 20 MG 1 tab(s) orally once a day Not-Taking Azelastine HCl 137 MCG/SPRAY 2 spray(s) intranasally 2 times a day for 30 day(s) Not-Taking Ferrous Sulfate 325 (65 Fe) MG 1 tab(s) orally 3 times a day Not-Taking Glimepiride 2 MG 1 tab(s) orally once a day Not-Taking Daliresp 500 MCG 1 tab(s) orally once a day Not-Taking Azithromycin 250 MG 2 tablets on the first day, then 1 tablet daily for 4 days Not-Taking Roflumilast 500 MCG 1 tab(s) orally once a day Active Benzonatate 200 MG 1 cap(s) orally 3 times a day Not-Taking ZyrTEC Allergy 10 MG 1 tablet PO QD for 30 days Active ARFORMOTEROL 15 mcg/2 mL 2 mL by nebulizer 2 times a day Active MONTELUKAST 10 mg 1 tab(s) orally once a day Active Vitamin D3 125 MCG (5000 UT) 1 capsule Orally Once a day Active EPINEPHRINE 0.3 mg as directed intramuscularly once for 30 day(s) Active FASENRA PREFILLED SYRINGE 30 mg/mL as directed subcutaneously every 8 weeks Active BUDESONIDE 0.5 mg/2 mL 2 mL by nebulizer 2 times a day Active SPIRIVA HANDIHALER 18 mcg 1 cap(s) inhaled once a day Active ALBUTEROL (EQV-PROAIR HFA) 90 mcg/inh 2 puff(s) inhaled every 6 hours Active COLESEVELAM HYDROCHLORIDE 625 mg 3 tab(s) orally 2 times a day Active VITAMIN D3 800 IU Ac tive LORAZEPAM 0.5 mg 1 tab(s) orally every 8 hours Active GLIMEPIRIDE 2 mg 1 tab(s) orally once a day Active LISINOPRIL 5 mg 1 tab(s) orally once a day Active ATORVASTATIN 20 mg 1 tab(s) orally once a day Active FERROUS SULFATE 325 mg 1 tab(s) orally 3 times a day Active NASAL WASHES N/A as directed intranasally as needed for 30 Active AZELASTINE NASAL 137 mcg/inh 2 spray(s) intranasally 2 times a day for 30 day(s) Active DALIRESP 500 mcg 1 tab(s) orally once a day Active AZITHROMYCIN 250 mg 2 tablets on the first day, then 1 tablet daily for 4 days Active BENZONATATE 200 mg 1 cap(s) orally 3 times a day Active Vital Signs Blood pressure systolic 98 mm Hg 09/11/19 25 Blood pressure diastolic 63 mm Hg 025 Height 61 in 09/11/2024 Oximetry 97 % 09/11/2024 Encounters Encounter Location Date Provider Diagnosis [facility] [address] [facility] [address] [place] [address] 09/11/2024 Minesh Morrell Severe persistent asthma, uncomplicated J45.50 Assessments Encounter Date Diagnosis (ICD Code) Assessment Notes Treatment Notes Treatment Clinical Notes Section Notes 09/11/2024 Severe persistent asthma, uncomplicated (ICD-10 - J45.50) 09/11/2024 Other Plan Of Treatment Next Appt Details Follow Up: As scheduled for JOSEFA, Reason: Provider Name:Minesh HEric Morrell , 11/06/2024 09:00:00 AM, [address] [facility], [address], [place], [address], Procedure Notes * Category Sub-Category Detail Notes FASENRA (benralizumab) Administration Dosage Subcutaneous administration: : 30 mg (30 units) Frequency Interval: every 8 weeks Location Arm: Left upper Dosing Time / Lot Number / Expiration Betsy Benitez 09/11/2024 08:42:17 AM RAT BREEDER >, Time of administration,, Lot Number:[id number], Expiration Date 09/2026 Post-procedural check-out: Bel Turpin 09/11/2024 09:16:29 AM RAT BREEDER >, Patient was discharged 30 minutes after dosing administration: BP: 94/58 HR: 86 SPO2: 97 Medication Source FASENRA Source: Buy and Bill Source Verfication:: Who pulled drug (pl ease type name in notes)? karissa Medical necessity for in-off ice administration: The patient or caregiver is not suitable , not competent or is physically unable to administer the FASENRA product FDA-labeled for self-administration for the following reason(s):: The location and circumstances for self-administration are not adequate for the potential treatment of anaphylaxis should that arise Progress Notes * Sandra DAYDOB:[birth year] (69 yo F)Acc No.[id number]:09/11/2024 FASENRA Only Patient: Sandra HEMPIHLL Provider: Fam Morrell MD :1955 A ge:69 Y S ex:Female Date:09/11/2024 Address:[address] [place], [place] [address] Pcp:Zana Toscano MD Subjective: * Chief Complaints: * S evere eosinophilic asthma follow-up, ready for FASENRA administration as scheduled todayNeeds evaluation for pre-FASENRA health questionaire to assess health status and medication review * HPI: * Introduction: The patient is here for scheduled immunotherapy with FASENRA. Please see the attached specialty form regarding the specifics of the administration of this medication. As per our protocol, they must undergo a screening health questionnaire (medication changes, reaction(s) to last immunotherapy dose(s), current health status, ACT (if appropriate), self-injectable epinephrine on patient(?) and peak flow (if appropriate)). Also, the patient must wait in our office under direct observation of physician and staff for 2 hours after the first 3 doses, then 30 minutes after receiving this medication thereafter. Furthermore, every patient must have an epinephrine pen (self-injectable) with them at all times given the risk of anaphylaxis with FASENRA. * ROS: A LLERGY: Positive p er the HPI and history, otherwise unremarkable.? S PECIAL SENSES: Positve for p er the HPI and history, otherwise unremarkable. C ONSTITUTIONAL: Positive for p er the HPI and history, otherwise unremakable. E NT: Positive p er the HPI and history, otherwise unremarkable.? R ESPIRATORY: Positive for p er the HPI and history, otherwise unremarkable. O PHTHALMOLOGY: Positive for p er the HPI and history, othewise unremarkable. E NDOCRINOLOGY: Positive for n one. C ARDIOLOGY: Positive for n one. G ASTROENTEROLOGY: Positive for p er the HPI and history, otherwise unremarkable. U ROLOGY: Positive for n one. D ERMATOLOGY: Positive for p er the HPI and history, otherwise unremarkable. N EUROLOGY: Positive for n one. H EMATOLOGY/LYMPH: Positive for n one. M USCULOSKELETAL: Positive for n one. P SYCHOLOGY: Positive for n one. A ll other review of systems per the HPI and history, othwise unremarkable. * Medical History: * Surgical History: * Hospitalization/Major Diagno stic Procedure: * Medications: T akingBENZONATATE 200 mg capsule 1 cap(s) orally 3 times a day DALIRESP 500 mcg tablet 1 tab(s) orally once a day AZITHROMYCIN 250 mg tablet 2 tablets on the first day, then 1 tablet daily for 4 days NASAL WASHES N/A 1 quart of sterilized tap water or distilled water, 1 tsp NaCl, 1 pinch of baking soda as directed intranasally as needed AZELASTINE NASAL 137 mcg/inh spray 2 spray(s) intranasally 2 times a day LORAZEPAM 0.5 mg tablet 1 tab(s) orally every 8 hours ATORVASTATIN 20 mg tablet 1 tab(s) orally once a day FERROUS SULFATE 325 mg tablet 1 tab(s) orally 3 times a day GLIMEPIRIDE 2 mg tablet 1 tab(s) orally once a day LISINOPRIL 5 mg tablet 1 tab(s) orally once a day COLESEVELAM HYDROCHLORIDE 625 mg tablet 3 tab(s) orally 2 times a day VITAMIN D3 800 IU SPIRIVA HANDIHALER 18 mcg capsule 1 cap(s) inhaled once a day ALBUTEROL (EQV-PROAIR HFA) 90 mcg/inh aerosol 2 puff(s) inhaled every 6 hours BUDESONIDE 0.5 mg/2 mL suspension 2 mL by nebulizer 2 times a day ARFORMOTEROL 15 mcg/2 mL solution 2 mL by nebulizer 2 times a day MONTELUKAST 10 mg tablet 1 tab(s) orally once a day EPINEPHRINE 0.3 mg kit as directed intramuscularly once FASENRA PREFILLED SYRINGE 30 mg/mL solution as directed subcutaneously every 8 weeks Vitamin D3 125 MCG (5000 UT) Capsule 1 capsule Orally Once a day ZyrTEC Allergy 10 MG Tablet 1 tablet PO QD Roflumilast 500 MCG Tablet 1 tab(s) orally once a day Taking BENZONATATE 200 mg capsule 1 cap(s) orally 3 times a day Taking DALIRESP 500 mcg tablet 1 tab(s) orally once a day Taking AZITHROMYCIN 250 mg tablet 2 tablets on the first day, then 1 tablet daily for 4 days Taking NASAL WASHES N/A 1 quart of sterilized tap water or distilled water, 1 tsp NaCl, 1 pinch of baking soda as directed intranasally as needed Taking AZELASTINE NASAL 137 mcg/inh spray 2 spray(s) intranasally 2 times a day Taking LORAZEPAM 0.5 mg tablet 1 tab(s) orally every 8 hours Taking ATORVASTATIN 20 mg tablet 1 tab(s) orally once a day Taking FERROUS SULFATE 325 mg tablet 1 tab(s) orally 3 times a day Taking GLIMEPIRIDE 2 mg tablet 1 tab(s) orally once a day Taking LISINOPRIL 5 mg tablet 1 tab(s) orally once a day Taking COLESEVELAM HYDROCHLORIDE 625 mg tablet 3 tab(s) orally 2 times a day Taking VITAMIN D3 800 IU Taking SPIRIVA HANDIHALER 18 mcg capsule 1 cap(s) inhaled once a day Taking ALBUTEROL (EQV-PROAIR HFA) 90 mcg/inh aerosol 2 puff(s) inhaled every 6 hours Taking BUDESONIDE 0.5 mg/2 mL suspension 2 mL by nebulizer 2 times a day Taking ARFORMOTEROL 15 mcg/2 mL solution 2 mL by nebulizer 2 times a day Taking MONTELUKAST 10 mg tablet 1 tab(s) orally once a day Taking EPINEPHRINE 0.3 mg kit as directed intramuscularly once Taking FASENRA PREFILLED SYRINGE 30 mg/mL solution as directed subcutaneously every 8 weeks Taking Vitamin D3 125 MCG (5000 UT) Capsule 1 capsule Orally Once a day Taking ZyrTEC Allergy 10 MG Tablet 1 tablet PO QD Taking Roflumilast 500 MCG Tablet 1 tab(s) orally once a day Not-Taking/PRNBenzonatate 200 MG Capsule 1 cap(s) orally 3 times a day Daliresp 500 MCG Tablet 1 tab(s) orally once a day Azithromycin 250 MG Tablet 2 tablets on the first day, then 1 tablet daily for 4 days Azelastine HCl 137 MCG/SPRAY Solution 2 spray(s) intranasally 2 times a day LORazepam 0.5 MG Tablet 1 tab(s) orally every 8 hours Atorvastatin Calcium 20 MG Tablet 1 tab(s) orally once a day Ferrous Sulfate 325 (65 Fe) MG Tablet 1 tab(s) orally 3 times a day Glimepiride 2 MG Tablet 1 tab(s) orally once a day Lisinopril 5 MG Tablet 1 tab(s) orally once a day Vitamin D3 800 IU , Notes to Pharmacist: *Please review and pick correct strength-formulation from [employer] options. If intended option is not shown, discontinue and re-order from Quick Search*Spiriva HandiHaler 18 MCG Capsule 1 cap(s) inhaled once a day Budesonide 0.5 MG/2ML Suspension 2 mL by nebulizer 2 times a day Montelukast Sodium 10 MG Tablet 1 tab(s) orally once a day EPINEPHrine 0.3 MG KIT DIRECTED INTRAMUSCULARLY ONCE , Notes to Pharmacist: *Please review and pick correct strength-formulation from [employer] options. If intended option is not shown, discontinue and re-order from Quick Search*Vitamin D3 1250 MCG CAPSULE 1 CAP(S) ORALLY ONCE A WEEK , Notes to Pharmacist: *Please review and pick correct strength-formulation from [employer] options. If intended option is not shown, discontinue and re-order from Quick Search*Omeprazole 40 MG Capsule Delayed Release Trelegy Ellipta 200 MCG-62.5 MCG-25 MCG/INH POWDER 1 PUFF(S) INHALED ONCE A DAY , Notes to Pharmacist: *Please review and pick correct strength-formulation from [employer] options. If intended option is not shown, discontinue and re-order from Quick Search*Doxycycline Hyclate 100 MG Capsule 1 cap(s) orally 2 times a day Not-Taking/PRN Benzonatate 200 MG Capsule 1 cap(s) orally 3 times a day Not-Taking/PRN Daliresp 500 MCG Tablet 1 tab(s) orally once a day Not-Taking/PRN Azithromycin 250 MG Tablet 2 tablets on the first day, then 1 tablet daily for 4 days Not-Taking/PRN Azelastine HCl 137 MCG/SPRAY Solution 2 spray(s) intranasally 2 times a day Not-Taking/PRN LORazepam 0.5 MG Tablet 1 tab(s) orally every 8 hours Not-Taking/PRN Atorvastatin Calcium 20 MG Tablet 1 tab(s) orally once a day Not-Taking/PRN Ferrous Sulfate 325 (65 Fe) MG Tablet 1 tab(s) orally 3 times a day Not-Taking/PRN Glimepiride 2 MG Tablet 1 tab(s) orally once a day Not- Taking/PRN Lisinopril 5 MG Tablet 1 tab(s) orally once a day Not-Taking/PRN Vitamin D3 800 IU , Notes to Pharmacist: *Please review and pick correct strength-formulation from TxtFeedbackspan options. If intended option is not shown, discontinue and re-order from Quick Search*Not-Taking/PRN Spiriva HandiHaler 18 MCG Capsule 1 cap(s) inhaled once a day Not-Taking/PRN Budesonide 0.5 MG/2ML Suspension 2 mL by nebulizer 2 times a day Not-Taking/PRN Montelukast Sodium 10 MG Tablet 1 tab(s) orally once a day Not-Taking/PRN EPINEPHrine 0.3 MG KIT DIRECTED INTRAMUSCULARLY ONCE , Notes to Pharmacist: *Please review and pick correct strength-formulation from TxtFeedbackspan options. If intended option is not shown, discontinue and re-order from Quick Search*Not-Taking/PRN Vitamin D3 1250 MCG CAPSULE 1 CAP(S) ORALLY ONCE A WEEK , Notes to Pharmacist: *Please review and pick correct strength-formulation from TxtFeedbackspan options. If intended option is not shown, discontinue and re-order from Quick Search*Not-Taking/PRN Omeprazole 40 MG Capsule Delayed Release Not-Taking/PRN Trelegy Ellipta 200 MCG-62.5 MCG-25 MCG/INH POWDER 1 PUFF(S) INHALED ONCE A DAY , Notes to Pharmacist: *Please review and pick correct strength-formulation from TxtFeedbackspan options. If intended option is not shown, discontinue and re-order from Quick Search*Not-Taking/PRN Doxycycline Hyclate 100 MG Capsule 1 cap(s) orally 2 times a day Objective: * Vitals: B P:98/63mm Hg, HR:80/min, Pulse Oximetry:97%, ACT:20, Ht: 61 in. Assessment: * Assessment: 1. S evere persistent asthma, uncomplicated - J45.50 (Primary) Plan: * Treatment: * Procedures: F ASENRA (benralizumab) Administration: Dosage S ubcutaneous administration: 3 0 mg (30 units) Frequency I nterval e very 8 weeks Location A rm L eft upper Dosing Time / Lot Number / Expiration Betsy Coffman 09/11/2024 08:42:17 AM RAT BREEDER >, Time of administration, , Lot Number:[id number] , Expiration Date 09/2026. Post-procedural check-out: Betsy Coffman 09/11/2024 09:16:29 AM RAT BREEDER >, Patient was discharged 30 minutes after dosing administration: BP: 94/58 H R: 86 SPO2: 97. Medication Source F ASENRA Source B uy and Bill Aylin carver Verfication: Y es Medical necessity for in-light armored reconnaissance officer: T he patient or caregiver is not suitable, not competent or is physically unable to administer the FASENRA product FDA-labeled for self-administration for the following reason(s): T he location and circumstances for self-administration are not adequate for the potential treatment of anaphylaxis should that arise * Procedure Codes: J 0517 Inj., benralizumab, 1 mg, Units: 30.00 94872 THER/PROPH/DIAG INJ, [id number] PT-FOCUSED HLTH RISK ASSMT * Follow Up: A s scheduled for FASENRA * Billing Information: * Visit Code: * Procedure Codes: J0517 Inj., benralizumab, 1 mg. Units: 30.00. 13044 THER/PROPH/DIAG INJ, SC/IM. 88094 PT-FOCUSED HLTH RISK ASSMT. * BREEDER Electronically co-signed by Minesh Morrell MD, FAAAAI on 09/16/2024 at 06:57 PM RAT BREEDER Sign off status: Completed true * Provider: Fam Morrell MD Date: 0 09/11/2024 Generated for Printi ng/Faxing/eTransmitting on: 0 10/06/2024 11:51 AM RAT BREEDER History and Physical Notes * HPI (History of Present Illness) Category Sub-Category Detail Notes Category Not es *Introduction The patient is here for scheduled immunotherapy with FASENRA. Please see the attached specialty form regarding the specifics of the administration of this medication. As per our protocol, they must undergo a screening health questionnaire (medication changes, reaction(s) to last immunotherapy dose(s), current health status, ACT (if appropriate), self-injectable epinephrine on patient(?) and peak flow (if appropriate)). Also, the patient must wait in our office under direct observation of physician and staff for 2 hours after the first 3 doses, then 30 minutes after receiving this medication thereafter. Furthermore, every patient must have an epinephrine pen (self-injectable) with them at all times given the risk of anaphylaxis with FASENRA.
== END 2024-10-06 10:57 | disposition home or self-care (01) ==
PROVIDERS: PCP Family Medicine; Visit Provider Internal Medicine Pulmonary Disease
DX: Z12.2 Encounter for screening for malignant neoplasm of respiratory organs (principal); J43.9 Emphysema, unspecified; Z87.891 Personal history of nicotine dependence
CPT/HCPCS: 71271

== ENCOUNTER 2025-04-20 07:59 | Outpatient (CLI) | payer MEDICARE, OTHER, SELFPAY ==
--- OUTSIDE RECORDS SUMMARY | 2014-11-16 08:12 | XMS_ITS | Continuity of Care Document ---
Author Organization 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 Arc Name Role Phone Ha Cabral MD, MD Unavailable Unavailab le Allergies, Adverse Reactions, Alerts Substance Reaction Status Criticality penicillin G Active No Information Medications Medication Instructions Dosage Effective Dates (start - stop) Status Comments prednisolone acetate 1 % eye drops,suspension instill 1 Drop by Ophthalmic route in the operated eye QID as directed - Active WelChol 625 mg tablet take 6 tablet by oral route every day with a meal and liquid 3750 MG - Active metformin 1,000 mg tablet take 1 tablet by oral route 2 times every day with morning and evening meals 1000 MG - Active pravastatin 40 mg tablet take 1 tablet by oral route every day 40 MG - Active omeprazole 40 mg capsule,delayed release take 1 capsule by oral route every day before a meal 40 MG - Active lisinopril 10 mg tablet take 1 tablet by oral route every day 10 MG - Active Januvia 100 mg tablet take 1 tablet by oral route every day 100 MG - Active Symbicort 160 mcg-4.5 mcg/actuation HFA aerosol inhaler inhale 2 puff by inhalation route 2 times every day in the morning and evening 2.00 puff - Active Polytrim 10,000 unit-1 mg/mL eye drops Instill 1 drop into Operated Eye QID as directed - No Longer Active Procedures Procedure Date Eye Exam, New Patient IOLMaster-Technical No Charge Refraction Advance Directives Directive Yes / No Effective Date File Name No Information Encounters Encounter Description Practice Location Reason(s) For Visit Diagnoses Date Provider Providers Copied on Encounter [facility], [address], [place], [place], [id number], tel:[phone] SEC Dona Fernandez No Information 5 Misha Bonner. [address], [place], [address], . [phone] [facility], [address], [place], [place], [id number], tel:[phone] SEC Ernesto FLOYD Professional blurry vision (chief complaint) glare (chief complaint) Nuclear sclerosisAge-re lated post subcapsular cataractDiabete s Misha Bonner. [address], [place], [address], . tel: [phone] Referring Provider: Gini Wallace , [address] [place] [address], [facility]. tel:[phone] Family History Family Member Type Diagnosis Age At Onset Paternal grandmother Problem (finding) glaucoma Payers Payer name Insurance type Covered libertarian ID Authormeeta mary(s) [facility] [id number] Social History Type Description Quantity Date Captured Comments Alcohol Use Details No Caffeine Use Details Tobacco Use Status Smoking Status Smoker, current status unknown M Sex Female Chief Complaint And Reason For Visit No Information Reason For Referral Reason For Referral No Information History Of Present Illness Encounter Date Complaint History Of Prese nt Illness glare blurry vision Patient presents for a cataract evaluation. Patient is a diabetic and BS was 102 this am. Patient c/o blurry vision and c/o glare at night. Functional Status Date Functional Assessmen t No Information Instructions Date Instruction Additional Infor mation Diabetes - Educational material given Related to Diabetes - Cataracts account for the patient's complaints. Discussed all risks, benefits, procedures and recovery. Patient understands changing glasses will not improve vision. Patient desires to have surgery, recommend phacoemulsification with intraocular lens. Schedule cataract surgery OD first then OS. Dictated ketter to Dr Young. Gave patient letter stating night vision and driving is poor until cataract surgery. Related to See list of assessments above - schedule cataract surgery OD first then OS Related to See list of assessments above Assessments Type Assessment Date No Information Patient Care Teams Name Effective Dates (start - stop) Status Members No Information
--- NOTE | ~2025-04-20 | DEXA_ITS ---
Bone Density Report Name: ZEENAT JONES Age: 69 Sex: Female Ethnicity: White Date of : 1955 Indication: postmenopausal; screening for osteoporosis; parental hip fracture; asthma or emphysema; Referring Provider: XAVIER SEWELL Study: Bone densitometry was performed. Exam Date: April 20, 2025 Accession number: [id number] Bone Density: Region BMD T-score Z-score Classification AP Spine(L1-L4) 0.880 -1.5 0.6 Osteopenia Femoral Neck (Left) 0.535 -2.8 -1.0 Osteoporosis Total Hip (Left) 0.645 -2.4 -0.9 Osteopenia Femoral Neck (Right) 0.542 -2.8 -0.9 Osteoporosis Total Hip (Right) 0.652 -2.4 -0.8 Osteopenia Total Hip Mean 0.649 -2.4 -0.9 Osteopenia World Health Organization criteria for BMD impression classify patients as: Normal (T-score at or above -1.0), Osteopenia (T-score between -1.0 and -2.5), or Osteoporosis (T-score at or below -2.5). 10-year Fracture Risk: FRAX not reported because: Some T-score for Spine Total or Hip Total or Femoral Neck at or below -2.5 Clinical Information Provided by Patient: Parent has had a hip fracture Smokes Has used the following medications: Vitamin D Has the following medical conditions: Asthma or Emphysema Patient maximum height was 62.0 Menopause Age: 44 No regular weight bearing exercise Drinks caffeinated beverages Onset of menses at age 11 Number of children 2 Impression: The patient has osteoporosis, based on the Left Femoral Neck T-score. The patient has risk factors, including: parental hip fracture, smoking. Discussion: INCREASED RISK OF FRACTURE. BONE DENSITY IS UNDESIRABLY LOW AT ONE OR MORE SKELETAL SITES, CONSISTENT WITH POSTMENOPAUSAL OSTEOPOROSIS. This patient's lowest T-score meets the World Health Organization's (WHO) criteria for osteoporosis at one or more sites (T-score -2.5 or below). In untreated patients, the risk of osteoporotic fracture increases approximately two-fold for each 1.0 SD decrease in T-score. Low bone density is not the only risk factor for fracture; also consider factors such as patient's age, frailty or poor health, risk of falling, risk of injury, previous osteoporotic fracture, family history of osteoporosis, cigarette smoking, low body weight, etc. Not everyone with low bone mineral density has osteoporosis; osteomalacia and other metabolic bone disorders should also be considered. Patients who have osteoporosis should be evaluated for specific diseases and conditions (secondary causes) that may cause or contribute to bone loss. The [place] [employer] (AACE) and National Osteoporosis Foundation (NOF) recommend pharmacologic intervention for all postmenopausal women whose T-score is in this range. The patient should follow a healthful lifestyle (good nutrition with adequate calcium and vitamin D, and appropriate weight-bearing exercise). Follow-Up: Consider a repeat BMD and Vertebral Fracture Assessment (VFA) exam in 2 years or sooner if medically necessary, to reassess this patient's status. Reported by: FLORENTIN on 04/20/2025 8:47:00 AM. Reviewed, dictated and finalized at location A.
--- OUTSIDE RECORDS SUMMARY | 2025-04-20 08:06 | XMS_ITS | Patient Health Record ---
Author Organization [employer] [place] ([address]) Address [address] [place] [address] Care Team Providers Care [employer] Name Role Phone Zana Toscano MD Primary Care Provider Unavaila Jessica Paz Unavailable [phone] Minesh Morrell Unavailable [phone] Allergies Allergen (clinical drug ingredient) Drug/Non Drug Allergy documented on EMR Reaction Allergy Type Onset Date Status JANIVIA (uncoded) rash Allergy Ac tive Penicillin rash Drug Allergy Active Results Component Value Reference Range Notes IMMUNOGLOBULINS G/A/M Reviewed date:07/13/2024 07:09:16 PM Interpretation:Normal Performing Lab:[place], [facility], [address] [place], [address] [facility] MD Notes/Report: FASTING: NO FASTING:NO NON-FASTING IMMUNOGLOBULIN A 215 70-320 mg/dL IMMUNOGLOBULIN G 082 803-0219 mg/dL IMMUNOGLOBULIN M 61 50-300 mg/dL Spirometry Reviewed date:05/08/2024 12:55:14 PM Interpretation:Abnormal Performing Lab: Notes/Report: Abnormal SpiroPreBronchodilator_FVC 1.79 SpiroPostBronchodilator_FEF25_75 0 SpiroPreBronchodilator_FEF25_75 0.74 SpiroPreBronchodilator_FEV1 1.16 SpiroPrecentPredictionPost_FEF25_75 0 SpiroPrecentPredictionPost_FEV1 0 SpiroPrecentPredictionPost_FEV1_OVER_FVC 0 SpiroPrecentPredictionPost_FVC 0 SpiroPrecentPredictionPre_FEF25_75 40 SpiroPrecentPredictionPre_FEV1 59.8 SpiroPrecentPredictionPre_FEV1_OVER_FVC 83.6 SpiroPrecentPredictionPre_FVC 71.3 SpiroPredicted_FEF25_75 1.85 SpiroPreBronchodilator_FEV1_OVER_FVC 64.87 SpiroPreBronchodilator_PEF 2.4 SpiroPostBronchodilator_FVC 0 SpiroPostBronchodilator_FEV1 0 SpiroPostBronchodilator_FEV1_OVER_FVC 0 SpiroPostBronchodilator_PEF 0 SpiroPredicted_FVC 2.51 SpiroPredicted_FEV1 1.94 SpiroPredicted_FEV1_OVER_FVC 77.64 SpiroPredicted_PEF 5.11 Reason For Referral No Information Medications Medication SIG (Take, Route, Frequency, Duration) Notes Start Date End Date Status Budesonide 0.5 MG/2ML 2 mL by nebulizer 2 times a day Not-Taking Montelukast Sodium 10 MG 1 tab(s) orally once a day Not-Taking EPINEPHrine 0.3 MG DIRECTED INTRAMUSCULARLY ONCE; Duration: 30 DAY(S) *Please review and pick correct strength-formula tion from [employer] options. If intended option is not shown, discontinue and re-order from Quick Search* Not-Taking BENZONATATE 200 mg 1 cap(s) orally 3 times a day Active Vitamin D3 1250 MCG 1 CAP(S) ORALLY ONCE A WEEK; Duration: 56 DAYS *Please review and pick correct strength-formula tion from [employer] options. If intended option is not shown, discontinue and re-order from Quick Search* 10/31/2022 Not-Taking Glimepiride 2 MG 1 tab(s) orally once a day Not-Taking MONTELUKAST 10 mg 1 tab(s) orally once a day Active Lisinopril 5 MG 1 tab(s) orally once a day Not-Taking EPINEPHRINE 0.3 mg as directed intramuscularly once; Duration: 30 day(s) Active Vitamin D3 800 IU *Please review and pick correct strength-formula tion from [employer] options. If intended option is not shown, discontinue and re-order from Quick Search* Not-Taking FASENRA PREFILLED SYRINGE 30 mg/mL as directed subcutaneously every 8 weeks Active Spiriva HandiHaler 18 MCG 1 cap(s) inhaled once a day Not-Taking LORAZEPAM 0.5 mg 1 tab(s) orally every 8 hours Active DALIRESP 500 mcg 1 tab(s) orally once a day Active AZITHROMYCIN 250 mg 2 tablets on the first day, then 1 tablet daily for 4 days Active NASAL WASHES N/A as directed intranasally as needed; Duration: 30 Active AZELASTINE NASAL 137 mcg/inh 2 spray(s) intranasally 2 times a day; Duration: 30 day(s) Active Atorvastatin Calcium 20 MG 1 tab(s) orally once a day Not-Taking Ferrous Sulfate 325 (65 Fe) MG 1 tab(s) orally 3 times a day Not-Taking GLIMEPIRIDE 2 mg 1 tab(s) orally once a day Active Benzonatate 200 MG 1 cap(s) orally 3 times a day Not-Taking LISINOPRIL 5 mg 1 tab(s) orally once a day Active Daliresp 500 MCG 1 tab(s) orally once a day Not-Taking COLESEVELAM HYDROCHLORIDE 625 mg 3 tab(s) orally 2 times a day Active Azithromycin 250 MG 2 tablets on the first day, then 1 tablet daily for 4 days Not-Taking VITAMIN D3 800 IU Ac tive Azelastine HCl 137 MCG/SPRAY 2 spray(s) intranasally 2 times a day; Duration: 30 day(s) Not-Taking Vitamin D3 125 MCG (5000 UT) 1 capsule Orally Once a day Active ZyrTEC Allergy 10 MG 1 tablet PO QD; Duration: 30 days Active ATORVASTATIN 20 mg 1 tab(s) orally once a day Active Roflumilast 500 MCG 1 tab(s) orally once a day Active FERROUS SULFATE 325 mg 1 tab(s) orally 3 times a day Active metFORMIN HCl 500 MG 1 tablet with a meal Orally Once a day Active SPIRIVA HANDIHALER 18 mcg 1 cap(s) inhaled once a day Active LORazepam 0.5 MG 1 tab(s) orally every 8 hours Not-Taking Omeprazole 40 MG ; Duration: 30 Days Not-Taking ALBUTEROL (EQV-PROAIR HFA) 90 mcg/inh 2 puff(s) inhaled every 6 hours Active Trelegy Ellipta 200 MCG-62.5 MCG-25 MCG/INH 1 PUFF(S) INHALED ONCE A DAY; Duration: 30 DAY(S) *Please review and pick correct strength-formula tion from [employer] options. If intended option is not shown, discontinue and re-order from Quick Search* Not-Taking BUDESONIDE 0.5 mg/2 mL 2 mL by nebulizer 2 times a day Active Doxycycline Hyclate 100 MG 1 cap(s) orally 2 times a day Not-Taking ARFORMOTEROL 15 mcg/2 mL 2 mL by nebulizer 2 times a day Active Immunizations Vaccine Route Administration Date Status Comme nts NOC PedvaxHIB Unknown 06/11/2023 Administered Exp 2024Jul 06 NOC Pneumovax 23 IM Intramuscular 02/04/2024 Administered NOC Pneumovax 23 IM Intramuscular 05/27/2024 Administered NOC Influenza-Afluria PFS Unknown 07/13/2021 Administered Portal Information Covid 19 (Pfizer) Unknown 12/09/2020 Administered Covid 19 (Pfizer) Unknown 12/30/2020 Administered Covid 19 (Pfizer) Unknown 07/12/2021 Administered Fluzone, quadrivalent, preservative free Unknown 08/09/2021 Administered NOC Prevnar 20 Unknown 02/03/2022 Administered NOC Prevnar 20 IM Intramuscular 04/01/2024 Administered NOC 9943-3340 Afluria Quad (MDV) 3 years and older IM Intramuscular 06/11/2023 Administered Exp February 23, 2024 Social History Tobacco Use: Social History Observation Description Date Details (start date - stop date) Current Smoker NA - NA Sex Assigned At : Social History Observation Description Sex Assigned At Female Tobacco Control (Standard) Question Answer Notes Tobacco use: Current every day smoker AUDIT-C (Standard) Question Answer Notes Did you have a drink containing alcohol in the p ast year? No Points 0 Interpretation Negative Problems Problem Type SNOMED Code ICD Code Onset Dates Problem Status W/U Status Risk Notes Problem Chronic allergic conjunctivitis (16837425) Other chronic allergic conjunctivitis (H10.45) Active confirmed Problem Allergic rhinitis (99473873) Other allergic rhinitis (J30.89) Active confirmed Problem Chronic rhinitis (51758763) Chronic rhinitis (J31.0) Active confirmed Problem Mild intermittent asthma (320732814) Mild intermittent asthma, uncomplicated (J45.20) Active confirmed Problem Uncomplicated mild persistent asthma (889926763) Mild persistent asthma, uncomplicated (J45.30) Active confirmed Problem Uncomplicated moderate persistent asthma (370371463) Moderate persistent asthma, uncomplicated (J45.40) Active confirmed Problem Uncomplicated severe persistent asthma (927662860) Severe persistent asthma, uncomplicated (J45.50) Active confirmed Problem Allergic rhinitis caused by pollen (disorder) (62227186) Allergic rhinitis due to pollen (J30.1) Active confirmed Problem Allergic rhinitis caused by animal hair and dander (755859611565842) Allergic rhinitis due to animal (cat) (dog) hair and dander (J30.81) Active confirmed Problem Acute severe exacerbation of severe persistent asthma (962497509) Severe persistent asthma with (acute) exacerbation (J45.51) Active confirmed Problem Chronic rhinitis (12138686) Chronic rhinitis (J31.0) Active confirmed Problem Chronic sinusitis (82990862) Other chronic sinusitis (J32.8) Active confirmed Problem Chronic sinusitis (99662770) Chronic sinusitis, unspecified (J32.9) Active confirmed Problem Hypertrophy of nasal turbinates (58280941) Hypertrophy of nasal turbinates (J34.3) Active confirmed Problem Vitamin D deficiency (02003366) Vitamin D deficiency, unspecified (E55.9) Active confirmed Problem Chronic obstructive pulmonary disease (93158059) Chronic obstructive pulmonary disease, unspecified (J44.9) Active confirmed Problem Eosinophil count above reference range (finding) (479957035) Eosinophilia, unspecified (D72.10) Active confirmed Problem Chronic cough (37496998) Chronic cough (R05.3) Active confirmed Vital Signs Respiratory Rate 17 /min 03/05/2025 Blood pressure diastolic 61 mm Hg 03/05/2025 Oximetry 100 % 03/05/2025 Height 61 in 03/05/2025 Blood pressure systolic 96 mm Hg 03/05/2025 Weight 96.6 lbs 03/05/2025 BMI 18.25 kg/m2 03/05/2025 Encounters Encounter Location Date Provider Diagnosis [facility] [address] [place] [address] 03/05/2025 Minesh Morrell Severe persistent asthma, uncomplicated J45.50 ; Eosinophilia, unspecified D72.10 ; Chronic obstructive pulmonary disease, unspecified J44.9 ; Hypertrophy of nasal turbinates J34.3 ; Chronic rhinitis J31.0 ; Other chronic sinusitis J32.8 ; Rash and other nonspecific skin eruption R21 ; Tobacco use Z72.0 and Vitamin D deficiency, unspecified E55.9 [facility] [address] [place] [phone] 07/03/2024 Jessica House Severe persistent asthma, uncomplicated J45.50 ; Eosinophilia, unspecified D72.10 ; Chronic obstructive pulmonary disease, unspecified J44.9 ; Hypertrophy of nasal turbinates J34.3 ; Chronic rhinitis J31.0 ; Other chronic sinusitis J32.8 ; Rash and other nonspecific skin eruption R21 ; Tobacco use Z72.0 and Vitamin D deficiency, unspecified E55.9 [facility] [address] [place] [phone] 05/08/2024 Jessica House Severe persistent asthma, uncomplicated J45.50 ; Eosinophilia, unspecified D72.10 ; Chronic obstructive pulmonary disease, unspecified J44.9 ; Hypertrophy of nasal turbinates J34.3 ; Chronic rhinitis J31.0 ; Other chronic sinusitis J32.8 ; Rash and other nonspecific skin eruption R21 ; Tobacco use Z72.0 and Vitamin D deficiency, unspecified E55.9 [facility] [address] [place] [address] 01/08/2025 Minesh Morrell Severe persistent asthma, uncomplicated J45.50 [facility] [address] [place] [phone] 11/06/2024 Minesh Morrell Severe persistent asthma, uncomplicated J45.50 [facility] [address] [place] [phone] 09/11/2024 Minesh Morrell Severe persistent asthma, uncomplicated J45.50 [facility] [address] [place] [phone] 05/27/2024 Minesh Morrell Encounter for immunization Z23 [facility] [address] [place] [address] 09/10/[address] [facility] [address] [place] [address] 05/22/2024 Jessica House Assessments Encounter Date Diagnosis (ICD Code) Assessment Notes Treatment Notes Treatment Clinical Notes Section Notes 05/08/2024 Severe persistent asthma, uncomplicated (ICD-10 - J45.50) Sandra continues to follow with Dr. Wells. She has a history of ACOS, with symptoms complicated by recurrent sinusitis and reflux -Doing better since last exacerbation in January 2023. She has not had any steroids since that time -Prior absolute eosinophil count in 07/2021 1079 and in 12/2021 was 400 but there was steroids prior for yas/copd exacerbation. -Current regimen of inhalers not able to be changed. Was given several samples of meds by Pulmonary, the last being Trelegy. Her OOP/coverage is limited. They found Budesonide and Brovana nebs are the cheapest + Spiriva + Singulair. - FEV1 ~1 L. Not an ideal candidate for testing and immunotherapy. ImmunoCaps negative -UTD on Shingles vaccine. -Fasenra dosed today w/o adverse reaction. -Recommend annual flu shot and RSV. -Spirometry today with moderate airway obstruction Improved from last check. Needs to stop smoking - we discuss smoking cessation at every visit. -Return in 8 weeks for next dose of Fasenra 05/08/2024 Eosinophilia, unspecified (ICD-10 - D72.10) The patient has severe asthma with an eosinophilic phenotype. The patient has had inadequate control of asthma symptoms after a minimum of 3 months of compliant use of inhaled corticosteriods and long-acting beta2-agonist or inhaled corticosteroids and long-acting anti-muscarinic antagonist. The patient has had an eosinophil count in the past 90 days or 12 months as documented in this medical record, and the medical staff has assessed the patient for the medical appropriateness for a varicella vaccination (recommended for patients age 50 or older). 05/27/2024 Encounter for immunization (ICD-10 - Z23) 07/03/2024 Severe persistent asthma, uncomplicated (ICD-10 - J45.50) Sandra continues to follow with Dr. Wells. She has a history of ACOS, with symptoms complicated by recurrent sinusitis and reflux -Doing better since last exacerbation in January 2023. She has not had any steroids since that time -Prior absolute eosinophil count in 07/2021 1079 and in 12/2021 was 400 but there was steroids prior for yas/copd exacerbation. -Current regimen of inhalers not able to be changed. Was given several samples of meds by Pulmonary, the last being Trelegy. Her OOP/coverage is limited. They found Budesonide and Brovana nebs are the cheapest + Spiriva + Singulair. - FEV1 ~1 L. Not an ideal candidate for testing and immunotherapy. ImmunoCaps negative -UTD on Shingles vaccine. -Fasenra dosed today w/o adverse reaction. -Recommend annual flu shot and RSV. -Spirometry today with moderate airway obstruction Improved from last check. Needs to stop smoking - we discuss smoking cessation at every visit. -Return in 8 weeks for next dose of Fasenra 07/03/2024 Eosinophilia, unspecified (ICD-10 - D72.10) The patient has severe asthma with an eosinophilic phenotype. The patient has had inadequate control of asthma symptoms after a minimum of 3 months of compliant use of inhaled corticosteriods and long-acting beta2-agonist or inhaled corticosteroids and long-acting anti-muscarinic antagonist. The patient has had an eosinophil count in the past 90 days or 12 months as documented in this medical record, and the medical staff has assessed the patient for the medical appropriateness for a varicella vaccination (recommended for patients age 50 or older). 09/11/2024 Severe persistent asthma, uncomplicated (ICD-10 - J45.50) 11/06/2024 Severe persistent asthma, uncomplicated (ICD-10 - J45.50) 01/08/2025 Severe persistent asthma, uncomplicated (ICD-10 - J45.50) 03/05/2025 Severe persistent asthma, uncomplicated (ICD-10 - J45.50) Sandra continues to follow with Dr. Wells. She has a history of ACOS, with symptoms complicated by recurrent sinusitis and reflux -Doing better since last exacerbation in January 2023. She has not had any steroids since that time -Prior absolute eosinophil count in 07/2021 1079 and in 12/2021 was 400 but there was steroids prior for yas/copd exacerbation. -Current regimen included Budesonide and Brovana nebs + Spiriva + Singulair. - FEV1 ~1 L. Not an ideal candidate for testing and immunotherapy. ImmunoCaps negative -UTD on Shingles vaccine. -Fasenra dosed today w/o adverse reaction. -Recommend annual flu shot and RSV. -Spirometry previously with moderate airway obstruction Improved from last check. Needs to stop smoking and now has for 4 days - we discuss smoking cessation at every visit. -Return in 8 weeks for next dose of Fasenra 05/08/2024 Chronic obstructive pulmonary disease, unspecified (ICD-10 - J44.9) As above, continue on current regimen -also on Daliresp and PRN benzonatate -focus on smoking cessation 07/03/2024 Chronic obstructive pulmonary disease, unspecified (ICD-10 - J44.9) As above, continue on current regimen -also on Daliresp and PRN benzonatate -focus on smoking cessation 03/05/2025 Eosinophilia, unspecified (ICD-10 - D72.10) The patient has severe asthma with an eosinophilic phenotype. The patient has had inadequate control of asthma symptoms after a minimum of 3 months of compliant use of inhaled corticosteriods and long-acting beta2-agonist or inhaled corticosteroids and long-acting anti-muscarinic antagonist. The patient has had an eosinophil count in the past 90 days or 12 months as documented in this medical record, and the medical staff has assessed the patient for the medical appropriateness for a varicella vaccination (recommended for patients age 50 or older). 07/03/2024 Hypertrophy of nasal turbinates (ICD-10 - J34.3) Chronic upper airway symptoms concerning for allergic disease -not an ideal candidate for SCIT -discussed trial of Nasacort and nasal washes. She has started Astelin since last visit -samples of antihistamines also provided -Recent ImmunoCaps from Pulmonary showed cat sensitivity and IgE=42 03/05/2025 Chronic obstructive pulmonary disease, unspecified (ICD-10 - J44.9) As above, continue on current regimen -also on Daliresp and PRN benzonatate -focus on smoking cessation 05/08/2024 Hypertrophy of nasal turbinates (ICD-10 - J34.3) Chronic upper airway symptoms concerning for allergic disease -not an ideal candidate for SCIT -discussed trial of Nasacort and nasal washes. She has started Astelin since last visit -samples of antihistamines also provided -Recent ImmunoCaps from Pulmonary showed cat sensitivity and IgE=42 05/08/2024 Chronic rhinitis (ICD-10 - J31.0) As above 07/03/2024 Chronic rhinitis (ICD-10 - J31.0) As above 03/05/2025 Hypertrophy of nasal turbinates (ICD-10 - J34.3) Chronic upper airway symptoms concerning for allergic disease -not an ideal candidate for SCIT -discussed trial of Nasacort and nasal washes. She has started Astelin since last visit -continue antihistamines -Recent ImmunoCaps from Pulmonary showed cat sensitivity and IgE=42 05/08/2024 Other chronic sinusitis (ICD-10 - J32.8) Given frequency of infection recommend checking labs to evaluation Sandra's immune system -labs showed inadquate Pneumococcal and Hib protection. Received boosters in May but overdue for recheck of titers + Vitamin D. Last check Pneumococcal titer increased from to . She received Prevnar last month and is due for recheck of titers 07/03/2024 Other chronic sinusitis (ICD-10 - J32.8) Given frequency of infection recommend checking labs to evaluation Sandra's immune system -labs showed inadquate Pneumococcal and Hib protection. Received boosters in May but overdue for recheck of titers + Vitamin D. Last check Pneumococcal titer increased from to . She received Prevnar last month and is due for recheck of titers 03/05/2025 Chronic rhinitis (ICD-10 - J31.0) As above 05/08/2024 Rash and other nonspecific skin eruption (ICD-10 - R21) History of eczema since childhood, presumed AD -managed with moisturizers -consider additional management with flares 07/03/2024 Rash and other nonspecific skin eruption (ICD-10 - R21) History of eczema since childhood, presumed AD -managed with moisturizers -consider additional management with flares 03/05/2025 Other chronic sinusitis (ICD-10 - J32.8) Given frequency of infection recommend checking labs to evaluation Sandra's immune system -labs showed inadquate Pneumococcal and Hib protection. Received boosters in May but overdue for recheck of titers + Vitamin D. Last check Pneumococcal titer increased from to . She received Prevnar and is due for recheck of titers ordered in 06/2024. 07/03/2024 Tobacco use (ICD-10 - Z72.0) Has been smoking more latley -needs to focus on smoking cessation 05/08/2024 Tobacco use (ICD-10 - Z72.0) Has been smoking more latley -needs to focus on smoking cessation 03/05/2025 Rash and other nonspecific skin eruption (ICD-10 - R21) History of eczema since childhood, presumed AD -managed with moisturizers -consider additional management with flares 05/08/2024 Vitamin D deficiency, unspecified (ICD-10 - E55.9) Vitamin D low at 17 -completed Vitamin D3 88553 IU weekly x 8 weeks -continues Vitamin D3 5000 IU daily -recheck with labs 07/03/2024 Vitamin D deficiency, unspecified (ICD-10 - E55.9) Vitamin D low at 17 -completed Vitamin D3 16773 IU weekly x 8 weeks -continues Vitamin D3 5000 IU daily -recheck with labs 03/05/2025 Tobacco use (ICD-10 - Z72.0) NO smoking for 4 days; encouraged to continue. -needs to focus on smoking cessation 03/05/2025 Vitamin D deficiency, unspecified (ICD-10 - E55.9) Vitamin D low at 17 -completed Vitamin D3 41477 IU weekly x 8 weeks -continues Vitamin D3 5000 IU daily 01/01/2025 Other 01/08/2025 Other 07/03/2024 Other 05/08/2024 Other 09/11/2024 Other 11/06/2024 Other Plan Of Treatment Pending Test Test Name Order Date STREPTOCOCCUS PNEUMONIAE IGG AB (23 SERO TYPES) 08/02/2023 STREPTOCOCCUS PNEUMONIAE IGG AB (23 SERO TYPES) 01/17/2024 VITAMIN D, 25-OH, TOTAL, [place] 08/02/2023 VITAMIN D, 25-OH, TOTAL, [place] 05/04/2022 HAEMOPHILUS INFLUENZAE B ANTIBODY, IGG 1 10/03/2022 HAEMOPHILUS INFLUENZAE B ANTIBODY, IGG 0 01/17/2024 STREPTOCOCCUS PNEUMONIAE AB (IGG) (23 SE ROTYPES) 01/28/2024 S. PNEUMONIAE IGG AB, 23 SEROTYPES, S Next Appt Details Provider Name:Minesh Morrell , 04/30/2025 09:30:00 AM, [address], [place], [address], Provider Name:Sheridan bey, 05/19/2025 12:30:00 PM, [address], [place], [address], Insurance Providers Payer Name Payer Address Payer Phone Subscriber Number Group Number Insured Name Patient Relationship to Insured Coverage Start Date Coverage End Date Adyen (Medicare ) Attention Claims [address] [place] [address] [id number] Sandra Moreland Self - patient is the insured [facility] [employer] [place] [address] [address] [place] [address] [id number] Sandra Moreland Self - patient is the insured 5 Medical (General) History Medical History History ICD Code Chronic obstructive pulmonary disease, u nspecified J44.9 Other chronic sinusitis J32.8 Chronic rhinitis J31.0 Eosinophilia, unspecified D72.10 Chronic cough R05.3 Severe persistent asthma, uncomplicated J45.50 Acid Reflux Surgical History Surgery Date(Month/Year) tubes tied 01/11/1983 cist removed right wrist 12/27/2001 rotator cuff repaired rt shoulder 2005 rotator cuff repaired left shoulder 02/24
== END 2025-04-20 08:00 | disposition home or self-care (01) ==
LOC: ANHIMG 08:00
PROVIDERS: PCP Family Medicine; Visit Provider Family Medicine
DX: Z78.0 Asymptomatic menopausal state (principal); M85.88 Other specified disorders of bone density and structure, other site; M85.852 Other specified disorders of bone density and structure, left thigh; M85.851 Other specified disorders of bone density and structure, right thigh; M81.0 Age-related osteoporosis without current pathological fracture
CPT/HCPCS: 77080

== ENCOUNTER 2025-05-14 16:08 | Outpatient (CLI) | payer MEDICARE, OTHER, SELFPAY ==
--- NOTE | ~2025-05-14 | MM_ITS ---
EXAMINATION: MM screening [facility] BI w oliver HISTORY: Screening TECHNIQUE: Craniocaudal and mediolateral oblique 3-D tomosynthesis images were obtained and synthetic 2-D images were generated. CAD analysis was submitted and interpreted. COMPARISON: 08/25/2011 BREAST PARENCHYMAL COMPOSITION: Not Dense: The breasts are almost entirely fatty. FINDINGS: There is no evidence of suspicious mass, calcification, or architectural distortion to suggest malignancy in either breast. [There has been no significant interval change. IMPRESSION: 1. No mammographic evidence of malignancy. Recommend routine screening mammography in one year. BI-RADS Category 1: Negative Reviewed, dictated, and finalized at Location A. Reviewed, dictated and finalized at location Q. IMPRESSION: 1. No mammographic evidence of malignancy. Recommend routine screening mammogra phy in one year. BI-RADS Category 1: Negative
== END 2025-05-14 16:09 | disposition home or self-care (01) ==
LOC: ANHFOHIMG 16:18
PROVIDERS: PCP Family Medicine; Visit Provider Family Medicine
DX: Z12.31 Encounter for screening mammogram for malignant neoplasm of breast (principal)
CPT/HCPCS: 77063; 77067

== ENCOUNTER 2025-06-04 10:32 | Outpatient (CLI) | payer MEDICARE, OTHER, SELFPAY ==
--- NOTE | ~2025-06-04 | XR_ITS ---
Examination: XR chest 2V Clinical History: R06.09 - Other forms of dyspnea Comparison: CT lung screening 10/06/2024 Technique: PA and Lateral Findings: Cardiomediastinal silhouette normal size and configuration. Lungs clear. Hyperinflation. Upper mediastinal calcifications. No acute bony abnormality. Osteopenia. IMPRESSION: 1. No acute cardiopulmonary findings. Reviewed, dictated and finalized at location R.
== END 2025-06-04 10:33 | disposition home or self-care (01) ==
PROVIDERS: PCP Family Medicine; Visit Provider Nurse Practitioner Family
DX: R06.09 Other forms of dyspnea (principal); R05.9 Cough, unspecified
CPT/HCPCS: 71046